=== PATIENT | male | born 1995 | race Caucasian/White ===

== ENCOUNTER 2017-12-08 09:20 | Emergency (ER) | payer MEDICAID ==
--- NOTE | 2017-12-08 09:51 | ED Physician Documentation ---
PD HPI HEENT - Stated complaint Stated Complaint: THROAT PAIN - Chief complaint Chief Complaint: Heent - History obtained from History obtained from: Patient - History of Present Illness Timing - onset: Yesterday Timing - duration: Days (2) Timing - details: Abrupt onset, Still present Location: Throat, Other (left side of neck under mandible.) Worsens: Swalllowing Associated symptoms: Facial swelling. No: Fever, Congestion, Rhinorrhea, Headache Similar symptoms before: Has not had sx before Recently seen: Not recently seen Review of Systems Constitutional: denies: Fever, Chills, Myalgias Nose: denies: Rhinorrhea / runny nose, Congestion Throat: reports: Sore throat. denies: Dental pain / toothache, Oral lesions / sores, Swollen tonsils Cardiac: denies: Chest pain / pressure Respiratory: denies: Dyspnea, Cough GI: denies: Nausea, Vomiting, Diarrhea Skin: denies: Rash, Lesions PD PAST MEDICAL HISTORY - Past Medical History Cardiovascular: None Respiratory: None Neuro: None Endocrine/Autoimmune: None GI: None - Past Surgical History Past Surgical History: No - Present Medications Home Medications: Ambulatory Orders Medication Instructions Recorded Confirmed traZODone [Desyrel] 50 mg PO HS #30 tablet 09/03/16 Cephalexin [Keflex] 500 mg PO QID #24 capsule 12/08/17 Dexamethasone [Decadron] 4 mg PO DAILY #5 tablet 12/08/17 Tramadol HCl 50 mg PO Q6H PRN #20 tablet 12/08/17 - Allergies Allergies/Adverse Reactions: Allergies Allergy/AdvReac Type Severity Reaction Status Date / Time Sulfa (Sulfonamide Allergy Unknown Verified 08/08/16 18:37 Antibiotics) - Social History Does the pt smoke?: No Smoking Status: Never smoker Does the pt drink ETOH?: No Does the pt have substance abuse?: No - Immunizations Immunizations are current?: Yes PD ED PE NORMAL - Vitals Vital signs reviewed: Yes - General General: Alert and oriented X 3, No acute distress, Well developed/nourished - HEENT HEENT: Ears normal, Pharynx benign (mild enlargement of the tonsils but no noted peritonsillar swelling nor deviation. ), Dentition benign (no gum swelling nor tenderness. ) - Neck Neck: Supple, no meningeal sign, Other (left submandibular area with large swelling, firmness. Bedside U/S showing large node with soft tissue swelling. No abscess seen. ) - Cardiac Cardiac: RRR, No murmur - Respiratory Respiratory: Clear bilaterally - Abdomen Abdomen: Soft, Non tender - Back Back: No CVA TTP - Derm Derm: Normal color, Warm and dry, No rash Results - Vitals Vitals: Oxygen O2 Source Room air - Labs Labs: Laboratory Tests 12/08/17 10:13 Group A Strep Rapid Negative PD MEDICAL DECISION MAKING - ED course Complexity details: reviewed results (bedside U/S showing large lymph node and soft tissue swelling without abscess seen. ), considered differential, d/w patient Departure - Departure Disposition: Home, Self Care Clinical Impression: Cervical adenitis, Throat infection Condition: Stable Record reviewed to determine appropriate education?: Yes Instructions: ED Cervical Adenitis Abx Tx Prescriptions: Cephalexin [Keflex] 500 mg PO QID #24 capsule Dexamethasone [Decadron] 4 mg PO DAILY #5 tablet Tramadol HCl 50 mg PO Q6H PRN #20 tablet PRN Reason: Pain Comments: This appears to be a large swollen gland and a lot of swelling of the tissue around it. Given your sore throat, presume the infection started from there and is causing the reaction of the lymph node and tissue. This commonly will be strep. We will see what the culture shows. It does not seem to be a dental infection. Sometimes a viral illness itself will cause this but it usually more symmetric and not just on the one side like that. Cephalexin antibiotic as directed and Decadron steroid anti-inflammatory as directed. Use Tylenol or ibuprofen if needed for pains. Add tramadol if needed for worse pain. Drink lots of fluids. Recheck if not improved over the next couple of days. Return sooner if worse swelling such that it feels like it affects your breathing or swallowing. I do not see any drainable abscess or pocket of infection at this point. Discharge Date/Time: 12/08/17 10:38
[2017-12-08] MEDS ORDERED: DEXAMETHASONE 10 MG/ML VIAL PO STA (10:15)
[2017-12-08] MEDS ORDERED: cephALEXin 250 MG CAPSULE PO STA (10:15)
[2017-12-08] MEDS ORDERED: IBUPROFEN 600 MG TABLET PO STA (10:15)
[2017-12-08 10:26] VITALS: BP 124/65
[2017-12-08] MEDS ORDERED: CHERRY SYRUP 10 ML UDC PO ONE (10:31)
== END 2017-12-08 10:38 | disposition home or self-care (01) ==
LOC: ED 09:20
DX: J02.9 Acute pharyngitis, unspecified (principal); I88.9 Nonspecific lymphadenitis, unspecified
CPT/HCPCS: 87070; 87430; 99283; A9270

== ENCOUNTER 2017-12-11 18:43 | Observation (INO) | payer MEDICAID ==
--- NOTE | 2017-12-11 19:34 | ED Physician Documentation ---
PD HPI HEENT - Stated complaint Stated Complaint: SOA/TERRAZAS - Chief complaint Chief Complaint: Heent - History obtained from History obtained from: Patient - History of Present Illness Timing - onset: How many days ago (has had this about 5-6 days, seen in ED 3 days ago with Dx of likely bacterial adenitis. Rx with keflex. He says the swelling on left went down and was improving but then swelling more centrally and to the right now. Feels some effect on breathing. No trouble swallowing and no distortion of voice.) Timing - duration: Days Timing - details: Gradual onset, Still present Worsens: No: Swalllowing Associated symptoms: Fever Recently seen: Emergency Dept (3 days ago) Review of Systems Constitutional: reports: Fever, Chills, Myalgias Nose: denies: Rhinorrhea / runny nose, Congestion Throat: reports: Sore throat. denies: Dental pain / toothache, Swollen tonsils Cardiac: denies: Chest pain / pressure, Palpitations Respiratory: reports: Dyspnea (feeling fullness in throat) GI: denies: Nausea, Vomiting, Diarrhea Neurologic: denies: Focal weakness, Numbness, Near syncope Immunocompromised: denies: Immunocompromised PD PAST MEDICAL HISTORY - Past Medical History Cardiovascular: None Respiratory: None Neuro: None Endocrine/Autoimmune: None GI: None - Past Surgical History Past Surgical History: No - Present Medications Home Medications: Ambulatory Orders Medication Instructions Recorded Confirmed Omeprazole 10 mg PO QDAC 12/12/17 12/12/17 - Allergies Allergies/Adverse Reactions: Allergies Allergy/AdvReac Type Severity Reaction Status Date / Time Sulfa (Sulfonamide Allergy Unknown Verified 12/11/17 18:59 Antibiotics) - Social History Does the pt smoke?: No Smoking Status: Never smoker Does the pt drink ETOH?: No Does the pt have substance abuse?: No - Immunizations Immunizations are current?: Yes PD ED PE NORMAL - Vitals Vital signs reviewed: Yes - General General: Alert and oriented X 3, No acute distress, Well developed/nourished - HEENT HEENT: Atraumatic, Dentition benign (no swelling of gums. Tonsils showing some redness but no obvious peritonsillar deviation. ) - Neck Neck: Supple, no meningeal sign, Other (swelling submandibular with firmness but not tense. No fluctuance. ) - Cardiac Cardiac: RRR, No murmur - Respiratory Respiratory: Clear bilaterally - Abdomen Abdomen: Soft, Non tender - Derm Derm: Normal color, Warm and dry, Other (redness and swelling of skin under mandible. ) - Neuro Neuro: Alert and oriented X 3, No motor deficit, No sensory deficit, Normal speech (no distortion of the voice) Results - Vitals Vitals: Vital Signs - 24 hr 12/11/17 12/11/17 18:56 20:36 Temperature 36.1 C L Heart Rate 73 66 Respiratory 24 20 Rate Blood Pressure 130/71 127/69 O2 Saturation 97 97 Oxygen O2 Source Room air - Labs Labs: Laboratory Tests 12/11/17 12/11/17 12/11/17 20:09 20:09 20:09 WBC 14.9 H RBC 5.38 Hgb 13.5 L Hct 40.8 L MCV 75.9 L MCH 25.1 L MCHC 33.1 RDW 14.1 Plt Count 428 MPV 7.1 L Neut # Not Reportable Lymph # Not Reportable Stevens # Not Reportable Eos # Not Reportable Baso # Not Reportable Absolute Nucleated RBC Not Reportable Total Counted 100 Band Neuts % (Manual) 2 Abnorm Lymph % (Manual) 0 Metamyelocytes % 1 H Nucleated RBC % Not Reportable Neutrophils # (Manual) 10.3 H Lymphocytes # (Manual) 3.6 H Monocytes # (Manual) 0.9 Eosinophils # (Manual) 0.0 Basophils # (Manual) 0.0 Differential Comment MANUAL DIFFERENTIAL Manual Slide Review Indicated Platelet Estimate NORMAL (130-450,000) Platelet Morphology NORMAL APPEARANCE RBC Morph Micro Appear 1+ ANISOCYTOSIS Sodium 134 L Potassium 3.8 Chloride 101 Carbon Dioxide 25 Anion Gap 8.0 BUN 13 Creatinine 0.5 L Estimated GFR (MDRD) 208 Glucose 100 Calcium 9.0 Total Bilirubin 0.9 AST 63 H ALT 137 H Alkaline Phosphatase 69 Total Protein 8.8 H Albumin 4.1 Globulin 4.7 H Albumin/Globulin Ratio 0.9 L Lipase 12 L Infectious Stevens Assay NEGATIVE - Rads (name of study) neck CT Radiology: Prelim report reviewed, Discussed with rads (soft tissue swelling submandibular and paraepiglottic, but no impingement on airway. no abscess) PD MEDICAL DECISION MAKING - ED course Complexity details: reviewed results (cellulitic changes and soft tissue swelling without abscess. No impairment on breathing passage. Culture from prior visit showing strep group B agalactaia), considered differential, d/w patient, d/w operations consultant (hospitalist) Departure - Departure Disposition: ED Place in Observation Clinical Impression: Cervical adenitis, Cellulitis of submandibular region, Streptococcal infection group B Condition: Stable Record reviewed to determine appropriate education?: Yes Discharge Date/Time: 12/11/17 22:25
[2017-12-11] MEDS ORDERED: DEXAMETHASONE 10 MG/ML VIAL IVP STA (19:50)
[2017-12-11] MEDS ORDERED: KETOROLAC 30 MG/ML VIAL IVP STA (19:50)
[2017-12-11] MEDS ORDERED: SODIUM CHLORIDE 0.9% 1,000 ML IV ONE (19:50)
[2017-12-11] MEDS ORDERED: MORPHINE 2 MG/ML CARPUJECT IVP STA (19:51)
[2017-12-11 20:16] LABS: BASOPHILS % (AUTO) 0.3 %; EOSINOPHILS % (AUTO) 0.1 %; HGB - HEMOGLOBIN 13.5 g/dL (14.0-18.0); LYMPHOCYTES % (AUTO) 17.3 %; MEAN CORPUSCULAR HEMOGLOBIN 25.1 pg (27.0-31.0); MEAN CORPUSCULAR HGB CONC 33.1 g/dL (32.0-36.0); MEAN CORPUSCULAR VOLUME 75.9 fL (80.0-94.0); MEAN PLATELET VOLUME 7.1 fL (7.4-11.4); MONOCYTES % (AUTO) 8.3 %; PLT - PLATELET COUNT 428 10^3/uL (130-450); RED BLOOD COUNT 5.38 10^6/uL (4.70-6.10); RED CELL DISTRIBUTION WIDTH 14.1 % (12.0-15.0); WHITE BLOOD COUNT 14.9 x10^3/uL (4.8-10.8)
[2017-12-11 20:18] LABS: ABNORMAL LYMPHS % (MANUAL) 0 %
[2017-12-11 20:30] LABS: ALBUMIN 4.1 g/dL (3.2-5.5); ALBUMIN/GLOBULIN RATIO 0.9 (1.0-2.2); BILIRUBIN,TOTAL 0.9 mg/dL (0.2-1.0); CREATININE 0.5 mg/dL (0.6-1.2); TOTAL PROTEIN 8.8 g/dL (6.7-8.2)
[2017-12-11 20:31] LABS: BAND NEUTROPHILS % (MANUAL) 2 %; DIFFERENTIAL COMMENT MANUAL DIFFERENTIAL; LYMPHOCYTES # (MANUAL) 3.6 10^3/uL (1.5-3.5); LYMPHOCYTES % (MANUAL) 24 %; METAMYELOCYTES % (MANUAL) 1 %; MONOCYTES # (MANUAL) 0.9 10^3/uL (0.0-1.0); NEUTROPHILS # (MANUAL) 10.3 10^3/uL (1.5-6.6); NEUTROPHILS % (MANUAL) 67 %; PLATELET ESTIMATE, MANUAL NORMAL (130-450,000) (NORMAL); PLATELET MORPHOLOGY NORMAL APPEARANCE (NORMAL); RBC MORPHOLOGY (MULTIPLE) 1+ ANISOCYTOSIS (NORMAL)
[2017-12-11] MEDS ORDERED: IOPAMIDOL-300 100 ML VIAL ONE (20:54)
[2017-12-11] MEDS ORDERED: IOPAMIDOL-300 100 ML VIAL IVP ONE (21:13)
[2017-12-11] MEDS ORDERED: cefTRIAXone 2 GM in SODIUM CHLORIDE 0.9% MINIBAG 100 ML IV STA (21:34)
--- NOTE | 2017-12-11 21:36 | CT Preliminary Report ---
Exam: CT NECK SOFT TISSUE W/ Impression: 1. Asymmetric, unilateral soft tissue swelling involving the right side of the epiglottis in the righ t aryepiglottic fold. These findings are concerning for right-sided supraglottitis. No discrete supra glottic abscess is demonstrated. No significant airway compromise is seen. 2. Also demonstrated is asymmetric enlargement and increased density of the right submandibular gland , suggesting probable hyperenhancement. This is concerning for active infection/inflammation in the s ubmandibular gland. No radiopaque calculus is seen within the gland and there is no evidence of an ob structing calculus in the duct for the right subinsular gland. 3. There is thickening of the platysma muscle bilaterally, more prominence on the right than the left . Stranding is seen in the subcutaneous fat of the anterior neck, also slightly more prominent on the right. These changes suggest cellulitis. No discrete abscess is demonstrated. SITE ID: [id number]
[2017-12-11] MEDS ORDERED: SODIUM CHLORIDE FLUSH 0.9% 10 ML SYRINGE IVP PRN (21:59)
[2017-12-11] MEDS ORDERED: ZOLPIDEM 5 MG TABLET PO PRN (21:59)
[2017-12-11] MEDS ORDERED: IBUPROFEN 600 MG TABLET PO PRN (21:59)
[2017-12-11] MEDS ORDERED: PROCHLORPERAZINE 10 MG/2 ML VIAL IVP PRN (21:59)
[2017-12-11] MEDS ORDERED: MORPHINE 2 MG/ML CARPUJECT IVP PRN (21:59)
[2017-12-11] MEDS ORDERED: traMADol 50 MG TABLET PO PRN (22:02)
--- NOTE | 2017-12-11 22:06 | CT Report ---
CT SOFT TISSUE NECK WITH CONTRAST INDICATION: 22-year-old male with submandibular swelling. TECHNIQUE: 100 mL of Isovue-300 contrast were injected intravenously. The neck was scanned helically and data wa s reconstructed into 2 mm axial images. In addition, sagittal and coronal reformations have been gene rated. In accordance with CT protocol optimization, one or more of the following dose reduction techniques w ere utilized for this exam: automated exposure control, adjustment of mA and/or KV based on patient s ize, or use of iterative reconstructive technique. COMPARISON: None. FINDINGS: The right submandibular gland appears slightly larger than the left. In addition, it is slightly more hyperdense, suggesting a probable increased enhancement. This suggests probable active inflammation within the gland. No radiopaque calculi are seen within the gland. In addition, no obvious radiopaque calculi are seen in the distribution of the duct for either submandibular gland. There is minor asym metric thickening of the platysma on the right. Stranding is identified in the subcutaneous fat of th e anterior neck, slightly more prominent on the right than the left. These finding suggests celluliti s. No discrete, loculated, peripherally enhancing fluid collection is identified within the neck. The nasopharyngeal and oropharyngeal soft tissues appear symmetric. No enhancing tongue mass is demon strated. There is mild asymmetric fullness of the right lingual tonsil. Also demonstrated is asymmetr ic thickening of the right side of the epiglottis and the right aryepiglottic fold, suggesting the po ssibility of right-sided supraglottitis. No discrete supraglottic abscess is demonstrated. The larynx is otherwise unremarkable. The trachea appears widely patent to the tegan. The thyroid has a normal appearance. The parotid glands are unremarkable. The main arteries and veins of the neck appear patent. Normal sized, well-circumscribed, nonnecrotic lymph nodes are identified within the neck. No necrotic or suppurative lymph nodes are demonstrated. No focal mass/nodule is identified in the imaged upper lungs. Regional bony structures appear intact. The mastoid air cells and middle ear cavities are clear. Ther e is polypoid mucosal thickening in the inferior maxillary sinuses. The imaged paranasal sinuses are otherwise clear. No mass is identified in the imaged orbits. No obvious acute pathology is seen in the imaged brain. IMPRESSION: 1. Asymmetric, unilateral soft tissue swelling involving the right side of the epiglottis in the righ t aryepiglottic fold. These findings are concerning for right-sided supraglottitis. No discrete supra glottic abscess is demonstrated. No significant airway compromise is seen. 2. Also demonstrated is asymmetric enlargement and increased density of the right submandibular gland , suggesting probable hyperenhancement. This is concerning for active infection/inflammation in the s ubmandibular gland. No radiopaque calculus is seen within the gland and there is no evidence of an ob structing calculus in the duct for the right subinsular gland. 3. There is thickening of the platysma muscle bilaterally, more prominence on the right than the left . Stranding is seen in the subcutaneous fat of the anterior neck, also slightly more prominent on the right. These changes suggest cellulitis. No discrete abscess is demonstrated. a preliminary report for this examination was called to Dr. Mohamud, following interpretation on at approximately 2134 hrs. Referring Provider Line: [phone] SITE ID: [id number]
[2017-12-11] MEDS ORDERED: methylPREDNISolone SUCCINATE 40 MG/ML VIAL IVP SCH (23:00)
[2017-12-11] MEDS ORDERED: traZODone 50 MG TABLET PO SCH (23:00)
[2017-12-11] MEDS: SODIUM CHLORIDE FLUSH 0.9% 10 ML SYRINGE IVP SCH (23:52)
--- NOTE | 2017-12-12 03:09 | HISTORY & PHYSICAL EXAMINATION ---
DATE OF SERVICE: Physician: Val Manzano MD DATE OF ADMISSION: 12/11/2017 HISTORY OF PRESENT ILLNESS: This is a 22-year-old, white male with a history of obesity and otherwise negative past medical history. Three days ago, he presented to the emergency room after abrupt onset of swelling of the left side of his neck under the mandible and had evaluation, and was felt to have cervical adenitis with an ultrasound showing a large lymph node and soft tissue swelling, but no abscess. He was sent home from the emergency room on Keflex 500 mg p.o. q.i.d. for a 6-day course, Decadron 4 mg p.o. daily, tramadol p.r.n. pain, and told to drink fluids. Apparently, the swelling improved but then today it got worse, and has actually moved to an area on the right, just lateral to the mandible. He came back to the emergency room, had imaging which again showed no area of abscess, mild cellulitis. The patient had no fever since before the very first ER visit. He denied any respiratory compromise or change in voice. The patient is being admitted because of failing p.o. antibiotics. MEDICATIONS AT HOME 1. Trazodone 50 mg p.o. at bedtime. 2. Keflex 500 mg p.o. q.i.d. 3. Decadron 4 mg p.o. daily. 4. Tramadol 50 mg p.o. q.6 hours p.r.n. pain. PAST MEDICAL HISTORY: None. ALLERGIES: SULFA ANTIBIOTICS. SOCIAL HISTORY: He is a nonsmoker who never smoked, uses no alcohol, has no illicit drug use history. FAMILY HISTORY: No inherited diseases. REVIEW OF SYSTEMS: A comprehensive review of systems was performed and the pertinent information is described above, all else are negative. PHYSICAL EXAMINATION GENERAL: Obese, young, white male in no distress. VITAL SIGNS: Afebrile, heart rate 73 in sinus rhythm, respiratory rate 20, blood pressure 127/70, oxygen saturation 97% on room air. HEENT: Reveals a foul odor from his mouth. Good dentition. Swelling and tenderness of the right mid lower mandible with no redness or discharge. NECK: There is no thyromegaly. No carotid bruits or JVD. CHEST: Clear. HEART: Heart sounds normal. No murmur. ABDOMEN: Obese. EXTREMITIES: No clubbing, cyanosis or edema. SKIN: No rash. NEUROLOGIC: Grossly intact. There are no meningeal signs. LABORATORIES: Sodium 134, otherwise normal electrolytes and BUN and creatinine. AST is 63, ALT 137. There are no old LFTs to compare. White blood count 14.9 with a left shift, hemoglobin 13.5 with a low MCV of 75, platelet count normal. Catron assay negative. Group A strep assay negative. No INR was done. EKG done and showed normal sinus rhythm and within normal limits. CT soft tissue of his neck: Thyroid was normal in appearance. Parotid glands unremarkable. Arteries of the neck generally patent. Asymmetric unilateral soft tissue swelling involving the right side of the epiglottis in the right aryepiglottic fold, concerning for right-sided supraglottitis, but no abscess seen and no airway compromise. There was also asymmetric enlargement of the right submandibular gland, suggesting probable hyperenhancement, consistent with active infection in the submandibular gland. No evidence of an obstructing calculus in the duct. There is thickening of the platysma muscle bilaterally, more on the right than the left. There is stranding in the subcutaneous fat of the anterior neck, more on the right than the left, which suggests cellulitis. IMPRESSION: 1) Supraglottitis with neck cellulitis and inflammation of the submandibular gland. The microbiology report from his emergency room visit 3 days ago is positive and is growing Streptococcus agalactiae, which is sensitive to everything. 2) Elevated LFTs 3) Obesity PLAN: Place the patient in observation. Initiate IV antibiotics to cover oral and skin ayesha, using Ceftriaxone. Initiate IV steroids. Observe for airway compromise. Continue with pain medications. Order a soft diet during this time period of facial pain and swelling. Consider a surgical consult or a dental consult. Follow CBC and LFTs. CODE STATUS: FULL CODE. DEEP VENOUS THROMBOSIS PROPHYLAXIS: SCDs. ATTESTATION: The patient is expected to be discharged or transferred within 96 hours: Yes. TD: 12/12/2017 03:08 ARSLAN
[2017-12-12 05:34] LABS: BASOPHILS % (AUTO) 0.1 %; LYMPHOCYTES % (AUTO) 16.3 %; MEAN CORPUSCULAR HEMOGLOBIN 24.8 pg (27.0-31.0); MEAN CORPUSCULAR HGB CONC 32.4 g/dL (32.0-36.0); MEAN CORPUSCULAR VOLUME 76.7 fL (80.0-94.0); MEAN PLATELET VOLUME 7.2 fL (7.4-11.4); MONOCYTES % (AUTO) 4.7 %; NEUTROPHILS % (AUTO) 78.9 %; PLT - PLATELET COUNT 418 10^3/uL (130-450); RED BLOOD COUNT 5.23 10^6/uL (4.70-6.10); RED CELL DISTRIBUTION WIDTH 14.3 % (12.0-15.0); WHITE BLOOD COUNT 13.2 x10^3/uL (4.8-10.8)
[2017-12-12 05:35] LABS: ABNORMAL LYMPHS % (MANUAL) 0 %
[2017-12-12 05:41] LABS: ALBUMIN 3.6 g/dL (3.2-5.5); BILIRUBIN,DIRECT 0.2 mg/dL (0.1-0.5); BILIRUBIN,TOTAL 0.7 mg/dL (0.2-1.0); TOTAL PROTEIN 7.9 g/dL (6.7-8.2)
[2017-12-12] MEDS: SODIUM CHLORIDE FLUSH 0.9% 10 ML SYRINGE IVP SCH ×2 (06:17→13:55)
[2017-12-12 06:18] LABS: BAND NEUTROPHILS % (MANUAL) 6 %; DIFFERENTIAL COMMENT MANUAL DIFFERENTIAL; LYMPHOCYTES # (MANUAL) 1.8 10^3/uL (1.5-3.5); LYMPHOCYTES % (MANUAL) 14 %; METAMYELOCYTES % (MANUAL) 1 %; MONOCYTES # (MANUAL) 0.5 10^3/uL (0.0-1.0); MYELOCYTES % (MANUAL) 1 %; NEUTROPHILS # (MANUAL) 10.6 10^3/uL (1.5-6.6); NEUTROPHILS % (MANUAL) 74 %; PLATELET ESTIMATE, MANUAL NORMAL (130-450,000) (NORMAL); RBC MORPHOLOGY (MULTIPLE) NORMAL APPEARANCE (NORMAL)
[2017-12-12] MEDS ORDERED: POLYETHYLENE GLYCOL 3350 17 GM PACKET PO SCH (09:00)
[2017-12-12] MEDS ORDERED: methylPREDNISolone SUCCINATE 40 MG/ML VIAL IVP SCH (09:00)
--- NOTE | 2017-12-12 10:10 | Discharge Plan ---
Discharge Plan Disposition: Home, Self Care Condition: Good Prescriptions: levoFLOXacin [Levofloxacin] 500 mg PO DAILY 10 Days #10 tablet predniSONE [Prednisone] 10 mg PO DAILY 4 Days #8 tab.ds.pk Saccharomyces Boulardii [Florastor] 250 mg PO BID 20 Days #40 capsule Diet: Regular Activity Restrictions: No Restrictions Shower Restrictions: No Driving Restrictions: No Weight Bearing: Full Weight Additional Instructions or Follow Up instructions: You were admitted overnight for IV antibiotic treatment of supraglottitis with neck cellulitis and inflammation of the submandibular gland. You will be prescribed ongoing antibiotics for at least another 10 days. You should see your PCP in the next few days as a follow up to this hospital stay. Your liver enzymes were elevated, so follow up with your PCP as to further testing; such as a Hepatitis panel, lipid panel, autoimmune markers, toxicology screening, etc. If you get more fevers, have problems swallowing or breathing return to the ER, or see your PCP. No Smoking: If you smoke, Please STOP! Call for help.
--- NOTE | 2017-12-12 10:37 | DISCHARGE SUMMARY ---
Discharge Summary Admit Date: 12/11/17 Discharge Date: 12/12/17 Discharging Provider: THIEN Prieto Primary Care Provider: none Code Status: Attempt Resuscitation Condition at Discharge: Good Discharge Disposition: 01 Home, Self Care - DIAGNOSES Admission Diagnoses: Supraglottitis without airway obstruction (J04.30) Cellulitis (L03.90) Elevated LFTs (R79.89) Obesity (E66.9) Discharge Diagnoses with Status of Each Condition: Supraglottitis without airway obstruction (J04.30) acute on this admission, stable and patient prescribed PO antibiotics outpatient. Cellulitis (L03.90) ongoing, being treated with PO antbiotics Elevated LFTs (R79.89) chronic, recommend follow up. Obesity (E66.9) chronic, stable. - HPI History of Present Illness: Sir Trey Pickard is a morbidly obese 22-year old male with a past medical history of obesity and otherwise a negative past medical history. Three days ago, he presented to the emergency room after abrupt onset of swelling of the left side of his neck under the mandible and had evaluation. This was felt to have cervical adenitis with an ultrasound showing a large lymph node and soft tissue swelling, but no abscess. He was sent home from the emergency room on Keflex 500mg PO QID for a 6-day course. Decadron 4mg PO daily, tramadol PRN for pain. He was also encouraged to drink fluids. Apparently, the swelling improved but then today it became worse and has migrated to an area on the right , just lateral to the mandible. He then presented to our ED. Imaging shows Asymmetric unilateral soft tissue swelling involving the right side of the epiglottis in the right aryepiglottic fold, concerning for right-sided supraglottis, but no abscess seen and no airway compromise. There was also asymmetric enlargement of the right submandibular gland, suggesting probable hyperenhancement, consistent with active infection in the submandibular gland. Patient was given his first dose of IV antibiotics in the ED, and will be admitted for observation with further IV steroids, IV antibiotics and symptom management. - HOSPITAL COURSE Hospital Course: Patient had an uneventful stay and recieved a second dose of IV Rochephin for treatment of his right face/neck cellulitis. We was then prescribed an additional 10 day course of once daily Levofloxicin PO to the pharmacy of his choice. He was transported via his mother home in stable condition with instructions to follow up with and establish a PCP in the next few days. - ALLERGIES Allergies/Adverse Reactions: Allergies Allergy/AdvReac Type Severity Reaction Status Date / Time Sulfa (Sulfonamide Allergy Unknown Verified 12/11/17 18:59 Antibiotics) - MEDICATIONS Home Medications: Ambulatory Orders Medication Instructions Recorded Confirmed Omeprazole 10 mg PO QDAC 12/12/17 12/12/17 Saccharomyces Boulardii [Florastor] 250 mg PO BID 20 Days #40 capsule 12/12/17 levoFLOXacin [Levofloxacin] 500 mg PO DAILY 10 Days #10 tablet 12/12/17 predniSONE [Prednisone] 10 mg PO DAILY 4 Days #8 tab.ds.pk 12/12/17 - PHYSICAL EXAM AT DISCHARGE General Appearance: positive: No acute distress, Alert Eyes Bilateral: positive: Normal inspection ENT: positive: No signs of dehydration, Pharyngeal erythema, Dry mucous membranes Neck: positive: No JVD, Trachea midline, Lymphadenopathy (R), Swelling/bruising (mild redness, very tender with palpation. Mild sore throat.) Respiratory: positive: Chest non-tender, No respiratory distress, Breath sounds nml Cardiovascular: positive: Regular rate & rhythm, No murmur, No gallop Peripheral Pulses: positive: 1+ Abdomen: positive: Non-tender, Nml bowel sounds, Hepatomegaly Back: positive: Nml inspection Skin: positive: No rash, Warm, Dry, Pallor Extremities: positive: Non-tender, Full ROM, Nml appearance, No pedal edema Neurologic/Psychiatric: positive: Oriented x3, CN's nml (2-12), Motor nml, Sensation nml, Depressed mood/affect Reflexes: Bicep (R): 3+, Bicep (L): 3+ - LABS Result Diagrams: 12/12/17 05:19 12/11/17 20:09 - DIAGNOSTIC IMAGING Diagnostic Imaging Results: Final report reviewed Diagnostic Imaging Results Comments: CT SOFT TISSUE NECK WITH CONTRAST INDICATION: 22-year-old male with submandibular swelling. TECHNIQUE: 100 mL of Isovue-300 contrast were injected intravenously. The neck was scanned helically and data was reconstructed into 2 mm axial images. In addition, sagittal and coronal reformations have been generated. In accordance with CT protocol optimization, one or more of the following dose reduction techniques were utilized for this exam: automated exposure control, adjustment of mA and/or KV based on patient size, or use of iterative reconstructive technique. COMPARISON: None. FINDINGS: The right submandibular gland appears slightly larger than the left. In addition, it is slightly more hyperdense, suggesting a probable increased enhancement. This suggests probable active inflammation within the gland. No radiopaque calculi are seen within the gland. In addition, no obvious radiopaque calculi are seen in the distribution of the duct for either submandibular gland. There is minor asymmetric thickening of the platysma on the right. Stranding is identified in the subcutaneous fat of the anterior neck , slightly more prominent on the right than the left. These finding suggests cellulitis. No discrete, loculated, peripherally enhancing fluid collection is identified within the neck. The nasopharyngeal and oropharyngeal soft tissues appear symmetric. No enhancing tongue mass is demonstrated. There is mild asymmetric fullness of the right lingual tonsil. Also demonstrated is asymmetric thickening of the right side of the epiglottis and the right aryepiglottic fold, suggesting the possibility of right-sided supraglottitis. No discrete supraglottic abscess is demonstrated. The larynx is otherwise unremarkable. The trachea appears widely patent to the tegan. The thyroid has a normal appearance. The parotid glands are unremarkable. The main arteries and veins of the neck appear patent. Normal sized, well-circumscribed, nonnecrotic lymph nodes are identified within the neck. No necrotic or suppurative lymph nodes are demonstrated. No focal mass/nodule is identified in the imaged upper lungs. Regional bony structures appear intact. The mastoid air cells and middle ear cavities are clear. There is polypoid mucosal thickening in the inferior maxillary sinuses. The imaged paranasal sinuses are otherwise clear. No mass is identified in the imaged orbits. No obvious acute pathology is seen in the imaged brain. IMPRESSION: 1. Asymmetric, unilateral soft tissue swelling involving the right side of the epiglottis in the right aryepiglottic fold. These findings are concerning for right-sided supraglottitis. No discrete supraglottic abscess is demonstrated. No significant airway compromise is seen. 2. Also demonstrated is asymmetric enlargement and increased density of the right submandibular gland, suggesting probable hyperenhancement. This is concerning for active infection/inflammation in the submandibular gland. No radiopaque calculus is seen within the gland and there is no evidence of an obstructing calculus in the duct for the right subinsular gland. 3. There is thickening of the platysma muscle bilaterally, more prominence on the right than the left. Stranding is seen in the subcutaneous fat of the anterior neck, also slightly more prominent on the right. These changes suggest cellulitis. No discrete abscess is demonstrated. - FOLLOW UP Follow Up: Disposition: Home, Self Care Condition: Good Prescriptions: levoFLOXacin [Levofloxacin] 500 mg PO DAILY 10 Days #10 tablet predniSONE [Prednisone] 10 mg PO DAILY 4 Days #8 tab.ds.pk Saccharomyces Boulardii [Florastor] 250 mg PO BID 20 Days #40 capsule Diet: Regular Activity Restrictions: No Restrictions Shower Restrictions: No Driving Restrictions: No Weight Bearing: Full Weight Additional Instructions or Follow Up instructions: You were admitted overnight for IV antibiotic treatment of supraglottitis with neck cellulitis and inflammation of the submandibular gland. You will be prescribed ongoing antibiotics for at least another 10 days. You should see your PCP in the next few days as a follow up to this hospital stay. Your liver enzymes were elevated, so follow up with your PCP as to further testing; such as a Hepatitis panel, lipid panel, autoimmune markers, toxicology screening, etc. If you get more fevers, have problems swallowing or breathing return to the ER, or see your PCP. - TIME SPENT Time Spent in Discharge (Minutes): 45
[2017-12-12 10:59] LABS: HEMOGLOBIN A1C 0.53 g/dL; HEMOGLOBIN A1C % 5.4 % (4.6-6.2)
[2017-12-12] MEDS ORDERED: cefTRIAXone 1 GM in SODIUM CHLORIDE 0.9% MINIBAG 100 ML IV SCH ×2 (14:00→22:00)
[2017-12-12 15:16] VITALS: BP 146/78
== END 2017-12-12 15:17 | disposition home or self-care (01) ==
LOC: ED 18:43 → OBS 21:59
PROVIDERS: ADMIT Internal Medicine; ATTEND Internal Medicine
DX: J04.30 Supraglottitis, unspecified, without obstruction (principal); B95.1 Streptococcus, group B, as the cause of diseases classified elsewhere; L03.211 Cellulitis of face; L03.221 Cellulitis of neck; R79.89 Other specified abnormal findings of blood chemistry; E66.9 Obesity, unspecified; Z68.41 Body mass index [BMI] 40.0-44.9, adult; Z79.899 Other long term (current) drug therapy
CPT/HCPCS: 36415; 70491; 80053; 80076; 83036; 83690; 85025; 86308; 87640; 93005; 96361; 96365; 96366; 96375; 99283; 99284; A9270; G0378; Q9967

== ENCOUNTER 2018-02-20 10:06 | Outpatient (CLI) | payer MEDICAID | END 2018-02-20 10:07 | disposition critical access hospital (66) | LOC: EMS 10:06 | PROVIDERS: ATTEND Surgery | DX: R10.12 Left upper quadrant pain (principal) | CPT/HCPCS: A0425; A0429 ==

== ENCOUNTER 2018-02-20 10:26 | Emergency (ER) | payer MEDICAID ==
[2018-02-20 12:05] LABS: BASOPHILS # (AUTO) 0.1 10^3/uL (0.0-0.1); BASOPHILS % (AUTO) 0.3 %; EOSINOPHILS # (AUTO) 0.1 10^3/uL (0.0-0.7); EOSINOPHILS % (AUTO) 0.5 %; HGB - HEMOGLOBIN 13.7 g/dL (14.0-18.0); LYMPHOCYTES # (AUTO) 2.5 10^3/uL (1.5-3.5); LYMPHOCYTES % (AUTO) 15.5 %; MEAN CORPUSCULAR HEMOGLOBIN 25.8 pg (27.0-31.0); MEAN CORPUSCULAR HGB CONC 33.5 g/dL (32.0-36.0); MEAN CORPUSCULAR VOLUME 77.1 fL (80.0-94.0); MEAN PLATELET VOLUME 7.2 fL (7.4-11.4); NEUTROPHILS # (AUTO) 12.5 10^3/uL (1.5-6.6); NEUTROPHILS % (AUTO) 77.7 %; PLT - PLATELET COUNT 332 10^3/uL (130-450); RED BLOOD COUNT 5.32 10^6/uL (4.70-6.10); RED CELL DISTRIBUTION WIDTH 14.6 % (12.0-15.0); WHITE BLOOD COUNT 16.1 x10^3/uL (4.8-10.8)
--- NOTE | 2018-02-20 12:12 | ED Physician Documentation ---
PD HPI ABD PAIN - Stated complaint Stated Complaint: ABD PX - Chief complaint Chief Complaint: Abd Pain - History obtained from History obtained from: Patient - History of Present Illness Timing - onset: Last night (about 2 am) Timing - duration: Hours (8) Timing - details: Abrupt onset, Still present, Waxing and waning Quality: Cramping, Aching, Pain Location: LLQ Radiation: Left flank Improved by: No: Position Worsened by: Moving, Palpation. No: Breathing, Position Associated symptoms: Nausea, Constipation (firm small stools only for few days) . No: Fever, Vomiting, Diarrhea, Melena, Hematochezia Recently seen: Not recently seen Review of Systems Constitutional: denies: Fever, Chills, Myalgias Nose: denies: Rhinorrhea / runny nose, Congestion Throat: denies: Sore throat Respiratory: denies: Cough GI: reports: Abdominal Pain, Nausea, Constipation. denies: Vomiting, Diarrhea, Hematemesis, Bloody / black stool : denies: Dysuria, Frequency Skin: denies: Rash, Lesions PD PAST MEDICAL HISTORY - Past Medical History Cardiovascular: None Respiratory: None Neuro: None Endocrine/Autoimmune: None GI: None : None Psych: Depression, Bipolar disorder Musculoskeletal: None Derm: None - Past Surgical History Past Surgical History: No - Present Medications Home Medications: Ambulatory Orders Medication Instructions Recorded Confirmed Omeprazole 10 mg PO QDAC 12/12/17 12/12/17 Acetaminophen [Tylenol] 650 mg PO Q6H PRN #30 tab 02/20/18 Docusate Sodium 100 mg PO DAILY #30 capsule 02/20/18 Naproxen [Naprosyn] 500 mg PO BID PRN #30 tablet 02/20/18 - Allergies Allergies/Adverse Reactions: Allergies Allergy/AdvReac Type Severity Reaction Status Date / Time Sulfa (Sulfonamide Allergy Unknown Verified 02/20/18 10:37 Antibiotics) - Social History Does the pt smoke?: No Smoking Status: Never smoker Does the pt drink ETOH?: No Does the pt have substance abuse?: No - Immunizations Immunizations are current?: Yes PD ED PE NORMAL - Vitals Vital signs reviewed: Yes - General General: Alert and oriented X 3, Well developed/nourished, Other (seems uncomfortable due to left abd pain. ) - HEENT HEENT: Pharynx benign - Neck Neck: Supple, no meningeal sign, No adenopathy - Cardiac Cardiac: RRR, No murmur - Respiratory Respiratory: Clear bilaterally - Abdomen Abdomen: Normal bowel sounds, Soft, Non distended, No organomegaly, Other (left mid to lower abd tenderness without guarding nor rebound tenderness. ) - Male Male : Deferred - Rectal Rectal: Deferred - Back Back: No CVA TTP - Derm Derm: Normal color, Warm and dry - Extremities Extremities: No tenderness to palpate, Normal ROM s pain - Neuro Neuro: Alert and oriented X 3, No motor deficit, Normal speech Results - Vitals Vitals: Oxygen O2 Source Room air - Labs Labs: Laboratory Tests 02/20/18 02/20/18 02/20/18 11:59 11:59 12:10 WBC 16.1 H RBC 5.32 Hgb 13.7 L Hct 41.0 L MCV 77.1 L MCH 25.8 L MCHC 33.5 RDW 14.6 Plt Count 332 MPV 7.2 L Neut # 12.5 H Lymph # 2.5 [place] # 1.0 Eos # 0.1 Baso # 0.1 Absolute Nucleated RBC 0.00 Nucleated RBC % 0.0 Sodium 134 L Potassium 3.8 Chloride 102 Carbon Dioxide 25 Anion Gap 7.0 BUN 9 Creatinine 0.6 Estimated GFR (MDRD) 168 Glucose 97 Calcium 9.2 Total Bilirubin 0.8 AST 59 H ALT 122 H Alkaline Phosphatase 72 Total Protein 8.1 Albumin 4.5 Globulin 3.6 Albumin/Globulin Ratio 1.3 Lipase 24 Urine Color YELLOW Urine Clarity CLEAR Urine pH 7.0 Ur Specific [place] 1.020 Urine Protein TRACE Urine Glucose (UA) NEGATIVE Urine Ketones NEGATIVE Urine Occult Blood NEGATIVE Urine Nitrite NEGATIVE Urine Bilirubin NEGATIVE Urine Urobilinogen 0.2 (NORMAL) Ur Leukocyte Esterase NEGATIVE Ur Microscopic Review NOT INDICATED Urine Culture Comments NOT INDICATED - Rads (name of study) abd/pelvic CT Radiology: Prelim report reviewed (no acute process to explain the pain), EMP read contemporaneously PD MEDICAL DECISION MAKING - ED course Complexity details: reviewed results, re-evaluated patient (feeling better with meds. ), considered differential, d/w patient Departure - Departure Disposition: 01 Home, Self Care Clinical Impression: Left sided abdominal pain Constipation Qualifiers: Constipation type: unspecified constipation type Qualified Code(s): K59.00 - Constipation, unspecified Condition: Stable Record reviewed to determine appropriate education?: Yes Instructions: ED Abdominal Pain Unkn Cause, ED Constipation Prescriptions: Acetaminophen [Tylenol] 650 mg PO Q6H PRN #30 tab PRN Reason: Pain Docusate Sodium 100 mg PO DAILY #30 capsule Naproxen [Naprosyn] 500 mg PO BID PRN #30 tablet PRN Reason: Pain Comments: Drink lots of fluids. Use docusate stool softener daily for the next week or so to stay regular. Naproxen twice daily for the next several days to week for pains and cramps and inflammation of the intestine. Add Tylenol every 4-6 hours if needed for pain. Recheck if not improving over the next few days. Your CT scan did not show any obvious cause for the pain. There can be irritation and inflammation of the colon related to constipation or possibly from inflammatory conditions such as colitis. Follow-up with your primary care if not improved over the next several days. Discharge Date/Time: 02/20/18 15:15
[2018-02-20 12:19] LABS: ALBUMIN 4.5 g/dL (3.2-5.5); ALBUMIN/GLOBULIN RATIO 1.3 (1.0-2.2); BILIRUBIN,TOTAL 0.8 mg/dL (0.2-1.0); CALCIUM 9.2 mg/dL (8.5-10.3); CREATININE 0.6 mg/dL (0.6-1.2); TOTAL PROTEIN 8.1 g/dL (6.7-8.2)
[2018-02-20 12:24] LABS: GLUCOSE, URINE (UA) NEGATIVE (NEGATIVE); KETONES,URINE (UA) NEGATIVE (NEGATIVE); LEUKOCYTE ESTERASE, URINE NEGATIVE (NEGATIVE); NITRITE,URINE NEGATIVE (NEGATIVE); OCCULT BLOOD,URINE NEGATIVE (NEGATIVE); PROTEIN,URINE TRACE mg/dL (NEGATIVE); UROBILINOGEN,URINE 0.2 (NORMAL) E.U./dL (NORMAL)
[2018-02-20 12:27] LABS: CLARITY,URINE CLEAR (CLEAR)
[2018-02-20 12:30] LABS: BILIRUBIN,URINE NEGATIVE (NEGATIVE); ICTOTEST,URINE NEGATIVE
[2018-02-20] MEDS ORDERED: KETOROLAC 60 MG/2 ML VIAL IM STA (12:45)
[2018-02-20] MEDS ORDERED: ACETAMINOPHEN 325 MG TABLET PO STA (12:46)
[2018-02-20 13:42] VITALS: BP 152/69
--- NOTE | 2018-02-20 14:05 | CT Preliminary Report ---
Exam: CT ABDOMEN/PELVIS W/O IMPRESSION: 1. Fatty liver. 2. Abnormal thoracolumbar spine consistent with prior Scheuermann's disease, excessive athletic parti cipation, remote trauma or osteoporosis. 3. No radiographic explanation for this young gentleman's presenting symptoms. [facility] SITE ID: [id number]
--- NOTE | 2018-02-20 14:10 | CT Report ---
EXAM: CT ABDOMEN AND PELVIS EXAM DATE: 02/20/2018 01:35 PM. CLINICAL HISTORY: Left abd/flank pain. Recent constipation. COMPARISONS: Gallbladder ultrasound 08/08/2016. No prior CT exam. TECHNIQUE: Routine helical CT imaging was performed through the abdomen and pelvis. IV contrast: None . Enteric contrast: No. Reconstructions: Coronal and sagittal. In accordance with CT protocol optimization, one or more of the following dose reduction techniques w ere utilized for this exam: automated exposure control, adjustment of mA and/or KV based on patient s ize, or use of iterative reconstructive technique. FINDINGS: Lung Bases: Unremarkable. Liver: Fatty infiltration. Gallbladder/Bile Ducts: Unremarkable. Spleen: Normal. Pancreas: Normal. Adrenal Glands: Normal. Kidneys: Normal. No masses, stones or hydronephrosis. Normal ureters. Peritoneal Cavity/Bowel: Normal. No free fluid, free air or adenopathy. No masses or acute inflammato ry process. The appendix is well visualized and normal. Minimal amount of stool throughout the small caliber colon. Pelvic Organs: Normal. The bladder and visualized pelvic organs are within normal limits. Vasculature: No aneurysms or other significant abnormality. Bones: Old mild wedging T8 to L1 with irregular endplates and mild degenerative disk disease. Other: None. IMPRESSION: 1. Fatty liver. 2. Abnormal thoracolumbar spine consistent with prior Scheuermann's disease, excessive athletic parti cipation, remote trauma or osteoporosis. 3. No radiographic explanation for this young gentleman's presenting symptoms. [facility] Referring Provider Line: [phone] SITE ID: [id number]
[2018-02-20] MEDS ORDERED: DOCUSATE SODIUM 100 MG CAPSULE PO STA (14:51)
== END 2018-02-20 15:15 | disposition home or self-care (01) ==
LOC: EDUNIT# → ED 10:26
DX: K59.00 Constipation, unspecified (principal); R10.32 Left lower quadrant pain
CPT/HCPCS: 36415; 74176; 80053; 81003; 83690; 85025; 96372; 99283; 99284; A9270; 81001; 87086

== ENCOUNTER 2018-07-18 18:19 | Emergency (ER) | payer MEDICAID ==
[2018-07-18 18:35] VITALS: BP 148/84
--- NOTE | 2018-07-18 18:48 | ED Physician Documentation ---
PD HPI BACK PAIN - Stated complaint Stated Complaint: UPPER BACK PX - Chief complaint Chief Complaint: Back Pain - History obtained from History obtained from: Patient - History of Present Illness Timing - onset: Other (He got a new job at [email or web address] where he does a lot of heavy lifting about a month ago. Over the last couple of weeks he has had upper back pain that is worse at night and worse in certain positions and when he sits up straight. He has tried stretching it out without relief. He is also tried acetaminophen [id number] without relief. There is no weakness, numbness, or tingling of the extremities. No neck pain. No saddle anesthesia. No fevers. No shortness of breath.) Review of Systems Constitutional: denies: Fever, Chills Cardiac: denies: Chest pain / pressure, Palpitations Respiratory: denies: Dyspnea, Cough GI: denies: Abdominal Pain PD PAST MEDICAL HISTORY - Past Medical History Cardiovascular: None Respiratory: None Endocrine/Autoimmune: None GI: None : None Psych: Depression, Bipolar disorder Musculoskeletal: None Derm: None - Past Surgical History Past Surgical History: No - Present Medications Home Medications: Ambulatory Orders Medication Instructions Recorded Confirmed Acetaminophen [Tylenol] 650 mg PO Q6H PRN #30 tab 02/20/18 Cyclobenzaprine [Flexeril] 10 mg PO TID PRN #20 tablet 07/18/18 Ibuprofen [Motrin] 800 mg PO Q8H PRN #30 tablet 07/18/18 - Allergies Allergies/Adverse Reactions: Allergies Allergy/AdvReac Type Severity Reaction Status Date / Time Sulfa (Sulfonamide Allergy Unknown Verified 07/18/18 18:35 Antibiotics) - Social History Does the pt smoke?: No Smoking Status: Never smoker Does the pt drink ETOH?: No Does the pt have substance abuse?: No - Immunizations Immunizations are current?: Yes PD ED PE NORMAL - Vitals Vital signs reviewed: Yes - General General: Alert and oriented X 3, No acute distress - Neck Neck: No bony TTP - Cardiac Cardiac: RRR, No murmur - Respiratory Respiratory: No respiratory distress, Clear bilaterally - Back Back: No spinal TTP, Other (Tender to the parathoracic muscles bilaterally, worse with certain positions but comfortable at rest. He has equal bilateral business partner strength, thumb extension, and interossei strength.Tender to the parathoracic muscles bilaterally, worse with certain positions but comfortable at rest. He has equal bilateral business partner strength, thumb extension, and interossei strength.) - Derm Derm: Other (acanthosis nigricans) - Neuro Neuro: Alert and oriented X 3, Normal speech - Psych Psych: Normal mood, Normal affect Results - Vitals Vitals: Vital Signs - 24 hr 07/18/18 18:32 Temperature 37.1 C Heart Rate 92 Respiratory 16 Rate Blood Pressure 148/84 H O2 Saturation 98 Oxygen O2 Source Room air PD MEDICAL DECISION MAKING - ED course ED course: This patient has seemingly uncomplicated musculoskeletal back pain. The patient has no "red flags." Specifically denies IV drug use, fevers, incontinence, saddle anesthesia. Spinal epidural abscess was considered, given that the patient has no fever, is not diabetic, has no spinal tenderness, does not use IV drugs, and has no bilateral neurologic symptoms, the diagnosis of spinal epidural abscess is considered exceedingly unlikely. He does have a acanthosis nigricans and as such a fingerstick blood sugar was checked and is 83. - Sepsis Event Vital Signs: Vital Signs - 24 hr 07/18/18 18:32 Temperature 37.1 C Heart Rate 92 Respiratory 16 Rate Blood Pressure 148/84 H O2 Saturation 98 Oxygen O2 Source Room air Departure - Departure Disposition: 01 Home, Self Care Clinical Impression: Back pain Qualifiers: Back pain location: thoracic back pain Chronicity: acute Back pain laterality: bilateral Qualified Code(s): M54.6 - Pain in thoracic spine Condition: Good Record reviewed to determine appropriate education?: Yes Instructions: ED Neck Back Pain General Prescriptions: Cyclobenzaprine [Flexeril] 10 mg PO TID PRN #20 tablet PRN Reason: Spasms Ibuprofen [Motrin] 800 mg PO Q8H PRN #30 tablet PRN Reason: PAIN &/OR FEVER Comments: Call your doctor to arrange a follow-up appointment, make the next available appointment. In the interim, return anytime if worse or if new symptoms develop. Your blood pressure was elevated today on check into the emergency department. This does not mean that you have hypertension, it is a common phenomenon to come to the emergency department and have elevated blood pressure. I recommend that you see your primary care physician within the week to have it rechecked when you are feeling better. Forms: Activity restrictions
== END 2018-07-18 18:56 | disposition home or self-care (01) ==
LOC: ED 18:19
DX: M54.6 Pain in thoracic spine (principal); L83 Acanthosis nigricans; R03.0 Elevated blood-pressure reading, without diagnosis of hypertension
CPT/HCPCS: 99283

== ENCOUNTER 2019-02-19 13:24 | Emergency (ER) | payer MEDICAID ==
[2019-02-19 13:36] VITALS: BP 139/72
--- NOTE | 2019-02-19 14:28 | ED Physician Documentation ---
History of Present Illness - Stated complaint Stated Complaint: BILAT FOOT PX - Chief complaint Chief Complaint: Ext Problem - History obtained from History obtained from: Patient - History of Present Illness Timing: How many weeks ago (several) Pain level max: 6 Pain level now: 3 - Additonal information Additional information: 23-year-old male complains of bilateral foot pain. Worse in the mornings and gets better with walking throughout the day. No trauma. Review of Systems Constitutional: denies: Fever, Chills GI: denies: Vomiting Skin: denies: Rash Musculoskeletal: denies: Neck pain, Back pain Neurologic: denies: Headache PD PAST MEDICAL HISTORY - Past Medical History Past Medical History: Yes Cardiovascular: None Respiratory: None Endocrine/Autoimmune: None GI: None : None Psych: Depression, Bipolar disorder Musculoskeletal: None Derm: None - Past Surgical History Past Surgical History: No - Present Medications Home Medications: Ambulatory Orders Medication Instructions Recorded Confirmed Ibuprofen [Motrin] 800 mg PO Q8H PRN #30 tablet 02/19/19 - Allergies Allergies/Adverse Reactions: Allergies Allergy/AdvReac Type Severity Reaction Status Date / Time Sulfa (Sulfonamide Allergy Unknown Verified 02/19/19 13:36 Antibiotics) - Social History Does the pt smoke?: No Smoking Status: Never smoker Does the pt drink ETOH?: No Does the pt have substance abuse?: Yes Substance Use and Type: Marijuana - Immunizations Immunizations are current?: Yes PD ED PE NORMAL - Vitals Vital signs reviewed: Yes - General General: Alert and oriented X 3, No acute distress, Well developed/nourished - Neck Neck: Supple, no meningeal sign - Derm Derm: Warm and dry - Extremities Extremities: Other (Tender to palpation along the plantar aspect of the b ilateral feet. No redness, no swelling. No deformity. No bony tenderness.) - Neuro Neuro: Alert and oriented X 3 - Psych Psych: Normal mood, Normal affect Results - Vitals Vitals: Vital Signs - 24 hr 02/19/19 13:33 Temperature 36.5 C Heart Rate 95 Respiratory 17 Rate Blood Pressure 139/72 H O2 Saturation 99 Oxygen O2 Source Room air PD MEDICAL DECISION MAKING - ED course Complexity details: reviewed results, re-evaluated patient, considered differential, d/w patient, d/w family ED course: 23-year-old male with bilateral plantar fasciitis. Recommend insole use as well as stretching and NSAIDs. He will follow-up with his doctor. Patient counseled regarding signs and symptoms for which I believe and urgent re- evaluation would be necessary. Patient with good understanding of and agreement to plan and is comfortable going home at this time This document was made in part using voice recognition software. While efforts are made to proofread this document, sound alike and grammatical errors may occur. Departure - Departure Disposition: Home, Self Care Clinical Impression: Plantar fasciitis Condition: Good Instructions: Plantar Fasciitis, Plantar Fasciitis Tx, ED Plantar Fasciitis Follow-Up: your,doctor in 1-2 weeks. [Other] Prescriptions: Ibuprofen [Motrin] 800 mg PO Q8H PRN #30 tablet PRN Reason: PAIN &/OR FEVER Comments: Return if you worsen. Follow-up with your doctor for further care. You can try plantar fascial stretching exercises at home to see if this helps. Inserts into her shoes will also likely help to support your arch. Forms: Activity restrictions
== END 2019-02-19 14:34 | disposition home or self-care (01) ==
LOC: ED 13:24
DX: M72.2 Plantar fascial fibromatosis (principal)
CPT/HCPCS: 99283

== ENCOUNTER 2019-10-22 15:16 | Emergency (ER) | payer MEDICAID ==
[2019-10-22 15:49] LABS: BASOPHILS # (AUTO) 0.1 10^3/uL (0.0-0.1); BASOPHILS % (AUTO) 0.7 %; EOSINOPHILS # (AUTO) 0.1 10^3/uL (0.0-0.7); EOSINOPHILS % (AUTO) 0.9 %; HGB - HEMOGLOBIN 14.3 g/dL (14.0-18.0); LYMPHOCYTES # (AUTO) 2.8 10^3/uL (1.5-3.5); LYMPHOCYTES % (AUTO) 21.6 %; MEAN CORPUSCULAR HEMOGLOBIN 26.1 pg (27.0-31.0); MONOCYTES # (AUTO) 0.9 10^3/uL (0.0-1.0); MONOCYTES % (AUTO) 7.1 %; NEUTROPHILS # (AUTO) 8.6 10^3/uL (1.5-6.6); PLT - PLATELET COUNT 366 10^3/uL (130-450); RED BLOOD COUNT 5.48 10^6/uL (4.70-6.10); RED CELL DISTRIBUTION WIDTH 13.3 % (12.0-15.0); WHITE BLOOD COUNT 12.7 x10^3/uL (4.8-10.8)
[2019-10-22 15:51] LABS: BILIRUBIN,URINE NEGATIVE (NEGATIVE); GLUCOSE, URINE (UA) NEGATIVE (NEGATIVE); KETONES,URINE (UA) NEGATIVE (NEGATIVE); LEUKOCYTE ESTERASE, URINE NEGATIVE (NEGATIVE); NITRITE,URINE NEGATIVE (NEGATIVE); OCCULT BLOOD,URINE NEGATIVE (NEGATIVE); PH,URINE 5.5 PH (5.0-7.5); PROTEIN,URINE NEGATIVE (NEGATIVE); UROBILINOGEN,URINE 0.2 (NORMAL) E.U./dL (NORMAL)
[2019-10-22 15:52] LABS: CLARITY,URINE CLEAR (CLEAR)
[2019-10-22 16:03] LABS: ALBUMIN 4.4 g/dL (3.2-5.5); ALBUMIN/GLOBULIN RATIO 1.2 (1.0-2.2); BILIRUBIN,TOTAL 0.5 mg/dL (0.2-1.0); CALCIUM 9.4 mg/dL (8.5-10.3); CREATININE 0.7 mg/dL (0.6-1.2); TOTAL PROTEIN 8.2 g/dL (6.7-8.2)
[2019-10-22] MEDS ORDERED: ONDANSETRON 4 MG/2 ML VIAL IVP STA ×2 (17:20→19:17)
[2019-10-22] MEDS ORDERED: HYDROmorphone 1 MG/ML CARPUJECT IVP STA ×3 (17:20→19:40)
--- NOTE | 2019-10-22 17:22 | ED Physician Documentation ---
PD HPI ABD PAIN - Stated complaint Stated Complaint: ABD PX - Chief complaint Chief Complaint: Abd Pain - History obtained from History obtained from: Patient, Family - History of Present Illness Timing - onset: Other (He is had about 4 hours now of epigastric and right upper quadrant pain that is severe, not the left upper quadrant in contrast to the nurses notes. It is associated with nausea. He has had a similar episode before that was concerning for a gallbladder issue. No abdominal surgeries in the past.) Review of Systems Ten Systems: 10 systems reviewed and negative Constitutional: denies: Fever, Chills Nose: reports: Reviewed and negative Throat: reports: Reviewed and negative Cardiac: reports: Reviewed and negative Respiratory: reports: Reviewed and negative PD PAST MEDICAL HISTORY - Past Medical History Cardiovascular: None Respiratory: None Endocrine/Autoimmune: None GI: None : None Psych: Depression, Bipolar disorder Musculoskeletal: None Derm: None - Past Surgical History Past Surgical History: No - Present Medications Home Medications: Ambulatory Orders Medication Instructions Recorded Confirmed Ibuprofen [Motrin] 800 mg PO Q8H PRN #30 tablet 02/19/19 Ciprofloxacin HCl [Cipro] 500 mg PO BID #20 tablet 10/22/19 Metronidazole [Flagyl] 500 mg PO BID #20 tablet 10/22/19 Oxycodone HCl/Acetaminophen 1 - 2 each PO Q6H PRN #7 tablet 10/22/19 [Percocet 5-325 mg Tablet] - Allergies Allergies/Adverse Reactions: Allergies Allergy/AdvReac Type Severity Reaction Status Date / Time Sulfa (Sulfonamide Allergy Unknown Verified 10/22/19 15:30 Antibiotics) - Social History Does the pt smoke?: No Smoking Status: Never smoker Does the pt drink ETOH?: No Does the pt have substance abuse?: Yes - Immunizations Immunizations are current?: Yes PD ED PE NORMAL - Vitals Vital signs reviewed: Yes - General General: Alert and oriented X 3, No acute distress - HEENT HEENT: PERRL, EOMI - Neck Neck: Supple, no meningeal sign, No bony TTP - Cardiac Cardiac: RRR, No murmur - Respiratory Respiratory: No respiratory distress, Clear bilaterally - Abdomen Abdomen: Normal bowel sounds, Soft, Other (Mild right upper quadrant tenderness with equivocal or Benz sign) - Back Back: No CVA TTP, No spinal TTP - Derm Derm: Normal color, Warm and dry - Extremities Extremities: No edema, No calf tenderness / cord - Neuro Neuro: Alert and oriented X 3, Normal speech Results - Vitals Vitals: Vital Signs - 24 hr 10/22/19 10/22/19 10/22/19 15:27 18:20 18:21 Temperature 36.7 C Heart Rate 99 92 92 Respiratory 17 18 20 Rate Blood Pressure 150/81 H 135/79 H 135/79 H O2 Saturation 98 98 98 10/22/19 10/22/19 10/22/19 19:14 19:43 20:03 Temperature Heart Rate 88 86 86 Respiratory 18 166 H 16 Rate Blood Pressure 149/82 H 151/74 H 142/71 H O2 Saturation 99 100 96 Oxygen O2 Source Room air - Labs Labs: Laboratory Tests 10/22/19 10/22/19 10/22/19 15:40 15:45 15:45 WBC 12.7 H RBC 5.48 Hgb 14.3 Hct 43.3 MCV 79.0 L MCH 26.1 L MCHC 33.0 RDW 13.3 Plt Count 366 MPV 9.0 Neut # (Auto) 8.6 H Lymph # (Auto) 2.8 [place]ona # (Auto) 0.9 Eos # (Auto) 0.1 Baso # (Auto) 0.1 Absolute Nucleated RBC 0.00 Nucleated RBC % 0.0 Sodium 139 Potassium 4.0 Chloride 102 Carbon Dioxide 24 Anion Gap 13.0 BUN 10 Creatinine 0.7 Estimated GFR (MDRD) 140 Glucose 97 Calcium 9.4 Total Bilirubin 0.5 AST 49 H ALT 86 H Alkaline Phosphatase 66 Total Protein 8.2 Albumin 4.4 Globulin 3.8 Albumin/Globulin Ratio 1.2 Lipase 34 Urine Color YELLOW Urine Clarity CLEAR Urine pH 5.5 Ur Specific [place] >=1.030 H Urine Protein NEGATIVE Urine Glucose (UA) NEGATIVE Urine Ketones NEGATIVE Urine Occult Blood NEGATIVE Urine Nitrite NEGATIVE Urine Bilirubin NEGATIVE Urine Urobilinogen 0.2 (NORMAL) Ur Leukocyte Esterase NEGATIVE Ur Microscopic Review NOT INDICATED Urine Culture Comments NOT INDICATED - Rads (name of study) CT A/P Radiology: EMP read contemporaneously (Chronic appearing dilatated and of the appendix with fecaliths, fatty liver) Right upper quadrant ultrasound Radiology: EMP read contemporaneously (No obvious cholelithiasis, fatty liver) PD MEDICAL DECISION MAKING - ED course ED course: 23-year-old gentleman presents with severe epigastric pain necessitating multiple rounds of narcotics, but then became pain-free but still some diffuse tenderness including in the right lower quadrant. Initial concern was for a biliary etiology but his ultrasound was normal except for fatty liver. This was followed by CT with results as shown and discussed after which with Dr. Toro the surgeon who recommended outpatient management with antibiotics and follow-up in the office. Departure - Departure Disposition: 01 Home, Self Care Clinical Impression: Appendicolith Abdominal pain Qualifiers: Abdominal location: epigastric Qualified Code(s): R10.13 - Epigastric pain Condition: Good Record reviewed to determine appropriate education?: Yes Instructions: ED Abdominal Pain Appendx Poss Follow-Up: Abbie Toro MD [Provider Admit Priv/Credential] - Prescriptions: Ciprofloxacin HCl [Cipro] 500 mg PO BID #20 tablet Metronidazole [Flagyl] 500 mg PO BID #20 tablet Oxycodone HCl/Acetaminophen [Percocet 5-325 mg Tablet] 1 - 2 each PO Q6H PRN #7 tablet PRN Reason: pain Comments: Return in 12 hours if not better, anytime if worse or if you develop a fever. Follow-up with Dr. Toro in the office for reevaluation, next available appointment.
[2019-10-22] MEDS ORDERED: KETOROLAC 30 MG/ML VIAL IVP STA (19:17)
[2019-10-22] MEDS ORDERED: IOVERSOL 320 100 ML VIAL IVP ONE ×2 (19:44→20:01)
--- NOTE | 2019-10-22 19:46 | Ultrasound Report ---
Reason: RUQ pain Procedure Date: 10/22/2019 Accession Number: [id number] / [id number] Procedure: US - Abdomen Limited CPT Code: Final Report FULL RESULT: EXAM: ABDOMEN ULTRASOUND LIMITED, RUQ EXAM DATE: 10/22/2019 07:11 PM. CLINICAL HISTORY: RUQ pain. COMPARISON: ABDOMEN LIMITED 08/08/2016 8:24 PM ABDOMEN/PELVIS W/O 02/20/2018 1:31 PM. TECHNIQUE: Real-time scanning was performed with static images obtained. FINDINGS: Liver: Significantly echogenic parenchyma with coarse echotexture and poor acoustic penetration. 20.2 cm. Main portal vein flow: Hepatopetal. Gallbladder: Normal. No stones or sonographic Benz's sign. Wall thickness upper limit of normal. Biliary System: CBD measures 6 mm. No intrahepatic or extrahepatic ductal dilatation. Other: The right kidney is unremarkable without hydronephrosis or visualized stone. IMPRESSION: Enlarged liver with fatty infiltration. RADIA
--- NOTE | 2019-10-22 20:26 | CT Report ---
Reason: IV only, upper abd pain Procedure Date: 10/22/2019 Accession Number: [id number] / [id number] Procedure: CT - Abdomen/Pelvis W CPT Code: Addended Final Report FULL RESULT: EXAM: CT ABDOMEN AND PELVIS EXAM DATE: 10/22/2019 08:03 PM. CLINICAL HISTORY: IV only, upper abd pain. COMPARISONS: ABDOMEN/PELVIS W/O 02/20/2018 1:31 PM. TECHNIQUE: Routine helical CT imaging was performed through the abdomen and pelvis. IV contrast: OPTI 320 100ML. Enteric contrast: No. Reconstructions: Coronal and sagittal. In accordance with CT protocol optimization, one or more of the following dose reduction techniques were utilized for this exam: automated exposure control, adjustment of mA and/or KV based on patient size, or use of iterative reconstructive technique. FINDINGS: Lung Bases: Unremarkable. Liver: Diffuse hepatic steatosis. no masses. Gallbladder/Bile Ducts: Unremarkable. Spleen: Normal. Pancreas: Normal. Adrenal Glands: Normal. Kidneys: Normal. No masses or hydronephrosis. Peritoneal Cavity/Bowel: Normal. No free fluid, free air or adenopathy. No masses or acute inflammatory process. Prominent/dilated appendix measuring 11 mm with tiny hyperdense intraluminal contents. Appendix appears slightly more dilated since prior dated 02/20/2018, however there is no periappendiceal fat stranding. Findings support mucocele. Findings do not support acute inflammation. Pelvic Organs: Normal. The bladder and visualized pelvic organs are within normal limits. Vasculature: No aneurysms or other significant abnormality. Bones: No significant abnormality. Other: None. IMPRESSION: Diffuse hepatic steatosis without focal hepatic abnormality. Chronic appearing dilatation of appendix measuring 11 mm with fecaliths. Findings most consistent with mucocele. This finding can be seen associated with appendiceal neoplasm (mucinous cystadenoma). Signs of acute inflammatory changes in the appendix. RADIA ADDENDUM: 10/22/19 20:39 Impression should state no signs of acute inflammatory changes in the appendix.
[2019-10-22] MEDS ORDERED: CIPROFLOXACIN 250 MG TABLET PO STA (20:50)
[2019-10-22] MEDS ORDERED: metroNIDAZOLE 250 MG TABLET PO STA (20:50)
[2019-10-22] MEDS ORDERED: oxyCODONE/ACET 5/325 Prepack 4 PO STA (20:50)
[2019-10-22 21:13] VITALS: BP 136/72
== END 2019-10-22 21:05 | disposition home or self-care (01) ==
LOC: ED 15:16
DX: K38.1 Appendicular concretions (principal); K76.0 Fatty (change of) liver, not elsewhere classified
CPT/HCPCS: 36415; 74177; 76705; 80053; 81001; 81003; 83690; 85025; 87086; 96374; 96375; 96376; 99285

== ENCOUNTER 2019-10-22 21:45 | Day surgery (SDC) | payer MEDICAID ==
[2019-10-22] MEDS ORDERED: ONDANSETRON 4 MG/2 ML VIAL IVP STA (21:51)
[2019-10-22] MEDS ORDERED: HYDROmorphone 1 MG/ML CARPUJECT IVP STA (21:51)
[2019-10-22] MEDS ORDERED: PIPERACILLIN/TAZOBACTAM 4.5 GM in SODIUM CHLORIDE 0.9% MINIBAG 100 ML IV STA (21:53)
[2019-10-22] MEDS ORDERED: HYDROmorphone 1 MG/ML CARPUJECT IVP PRN (21:55)
[2019-10-22] MEDS ORDERED: ONDANSETRON 4 MG/2 ML VIAL IVP PRN (21:56)
--- NOTE | 2019-10-22 21:57 | ED Physician Documentation ---
PD HPI ABD PAIN - Stated complaint Stated Complaint: ABD PX - Chief complaint Chief Complaint: Abd Pain - History obtained from History obtained from: Patient, Family - History of Present Illness Timing - onset: Today (I had seen him earlier this evening, started with epigastric pain but then developed right lower quadrant tenderness. CT showed appendicoliths, may be some chronic appendicitis. After consultation with the surgeon he was discharged with antibiotics with the plan to follow-up in the clinic for further evaluation, shortly after discharge he could not tolerate the pain and returns for reevaluation.) Review of Systems Ten Systems: 10 systems reviewed and negative Constitutional: denies: Fever, Chills GI: reports: Abdominal Pain, Nausea. denies: Vomiting : denies: Dysuria, Frequency PD PAST MEDICAL HISTORY - Past Medical History Cardiovascular: None Respiratory: None Endocrine/Autoimmune: None GI: None : None Psych: Depression, Bipolar disorder Musculoskeletal: None Derm: None - Past Surgical History Past Surgical History: No - Present Medications Home Medications: Ambulatory Orders Medication Instructions Recorded Confirmed Ibuprofen [Motrin] 800 mg PO Q8H PRN #30 tablet 02/19/19 Ciprofloxacin HCl [Cipro] 500 mg PO BID #20 tablet 10/22/19 Metronidazole [Flagyl] 500 mg PO BID #20 tablet 10/22/19 Oxycodone HCl/Acetaminophen 1 - 2 each PO Q6H PRN #7 tablet 10/22/19 [Percocet 5-325 mg Tablet] - Allergies Allergies/Adverse Reactions: Allergies Allergy/AdvReac Type Severity Reaction Status Date / Time Sulfa (Sulfonamide Allergy Unknown Verified 10/22/19 21:54 Antibiotics) - Social History Does the pt smoke?: No Smoking Status: Never smoker Does the pt drink ETOH?: No Does the pt have substance abuse?: Yes - Immunizations Immunizations are current?: Yes PD ED PE NORMAL - Vitals Vital signs reviewed: Yes - General General: Alert and oriented X 3, Other (Appears uncomfortable and sweaty) - HEENT HEENT: PERRL, EOMI - Neck Neck: Supple, no meningeal sign, No bony TTP - Cardiac Cardiac: RRR, No murmur - Respiratory Respiratory: No respiratory distress, Clear bilaterally - Abdomen Abdomen: Soft, Other (Mild tenderness in the right lower quadrant) - Back Back: No CVA TTP, No spinal TTP - Derm Derm: Normal color, Warm and dry - Extremities Extremities: No edema, No calf tenderness / cord - Neuro Neuro: Alert and oriented X 3, Normal speech Results - Vitals Vitals: Vital Signs - 24 hr 10/22/19 21:52 Temperature 36.4 C L Heart Rate 87 Respiratory 18 Rate Blood Pressure 150/79 H O2 Saturation 99 Oxygen O2 Source Room air PD MEDICAL DECISION MAKING - ED course ED course: 23-year-old gentleman with potential smoldering appendicitis, somewhat atypical history bounces back with uncontrolled pain. Spoke with Dr. Muna andrew who plans to take him out of the OR in the morning laparoscopic evaluation and likely appendectomy. He was written for every 6 hours Zosyn, and PRN pain and nausea medicines as well as maintenance fluids. Departure - Departure Disposition: ED Transfer to [facility] Clinical Impression: Acute abdomen Condition: Fair
[2019-10-22] MEDS ORDERED: DEXTROSE 5%-LACTATED RINGERS 1,000 ML IV SCH (22:00)
[2019-10-23] MEDS: PIPERACILLIN/TAZOBACTAM 4.5 GM in SODIUM CHLORIDE 0.9% MINIBAG 100 ML IV SCH ×2 (04:49→05:02)
--- NOTE | 2019-10-23 05:59 | ANESTHESIA ---
Pre-Anesthesia VS, & Labs - Diagnosis appendicitis - Procedure laparoscopic appendectomy Vital Signs: Temp Pulse Resp BP Pulse Ox 36.5 C 71 16 102/57 L 97 10/23/19 02:59 10/23/19 05:33 10/23/19 05:33 10/23/19 05:33 10/23/19 05:33 Height 6 ft 1 in Weight (kg) 115.666 kg Body Mass Index 33.6 - NPO >8 hours Home Medications and Allergies Active Medications Hydromorphone HCl (Dilaudid Inj Carp) 1 mg IVP Q2H PRN PRN Reason: PAIN Dextrose/Lactated Ringer's (D5lr) 1,000 mls @ 125 mls/hr IV .Q8H [facility] Last Admin: 10/23/19 04:48 Dose: Not Given Piperacillin Sod/Tazobactam (Sod 4.5 gm/ Sodium Chloride) 100 mls @ 100 mls/hr IV Q6H [facility] Last Admin: 10/23/19 05:02 Dose: 100 mls/hr Ondansetron HCl (Zofran Inj) 4 mg IVP Q6H PRN PRN Reason: Nausea / Vomiting Allergies/Adverse Reactions: Allergies Allergy/AdvReac Type Severity Reaction Status Date / Time Sulfa (Sulfonamide Allergy Unknown Verified 10/22/19 21:54 Antibiotics) Anes History & Medical History - Anesthetic History Family history of Anesthesia Complications: Denies Family history of Malignant Hyperthermia: Denies - Medical History Cardiovascular: reports: None Pulmonary: reports: None Gastrointestinal: reports: None Urinary: reports: None Neuro: reports: None Musculoskeletal: reports: None Endocrine/Autoimmune: reports: None Blood Disorders: reports: None Skin: reports: None Smoking Status: Never smoker Psychosocial: reports: No issues indicated Exam General: Alert, Oriented x3, Cooperative, No acute distress Dental: Other (chipped right upper molar) Mouth Openin Fingerbreadth Neck Mobility: Normal Mallampati classification: IV Thyromental Distance: greater than 6 cm Respiratory: Lungs clear, Normal breath sounds, No respiratory distress, No accessory muscle use Cardiovascular: Regular rate, Normal S1, Normal S2, No murmurs Mental/Cognitive Status: Alert/Oriented X3, Normal for patient Plan Anesthesia Type: General Consent for Procedure(s) Verified and Reviewed: Yes Code Status: Attempt Resuscitation ASA classification: 2-Mild systemic disease Is this case an emergency?: No
[2019-10-23] MEDS ORDERED: DEXAMETHASONE 4 MG/ML VIAL IVP ONE (06:04)
[2019-10-23] MEDS ORDERED: ROCURONIUM 50 MG/5 ML VIAL IVP ONE (06:04)
[2019-10-23] MEDS ORDERED: PROPOFOL 200 MG/20 ML VIAL IVP ONE (06:04)
[2019-10-23] MEDS ORDERED: KETOROLAC 30 MG/ML VIAL IVP ONE (06:04)
[2019-10-23] MEDS ORDERED: NEOSTIGMINE 1 MG/1 ML 10 ML MDV IVP ONE (06:04)
[2019-10-23] MEDS ORDERED: MIDAZOLAM 2 MG/2 ML VIAL IVP ONE (06:04)
[2019-10-23] MEDS ORDERED: fentaNYL 100 MCG/2 ML VIAL IVP ONE (06:04)
[2019-10-23] MEDS ORDERED: GLYCOPYRROLATE 1 MG/5 ML VIAL IVP ONE (06:04)
--- NOTE | 2019-10-23 06:22 | HISTORY & PHYSICAL EXAMINATION ---
HPI - Admitted From Admitted from: ED - History Obtained From Records Reviewed: RN notes reviewed, Old records reviewed History obtained from: Patient, Family Exam limitations: No limitations - History of Present Illness Severity at the worst: reports: Severe Pain Quality: reports: Sharp, Dull, Burning Context-Pain started w/: reports: Rest Timing: reports: Gradual onset, Constant Duration: reports: Days: (2) Improved with: reports: Nothing Worsened by: reports: Exertion, Inspiration, Movement, Palpation HPI Comment/Other: 23 year old man with right lower quadrant pain. Presented to the ED and was seen and found to have a somewhat dilated appendix with fecaliths but without evidence of acute appendicitis. Was discharged home to followup in clinic but reports the pain became so severe that he turned the car around and returned to the ED. Pain has resolved now. Last bowel movement was at least 24 hours ago. No vomiting or fever but he has been nauseated. PMH/PSH - Past Medical History Cardiovascular: positive: None Respiratory: positive: None Neuro: positive: None Endocrine/Autoimmune: positive: None GI: positive: None : positive: None Psych: positive: Depression, Bipolar disorder Musculoskeletal: positive: None Derm: positive: None MRSA Hx?: No Social & Family Hx - Living Situation Living Arrangement: At home - Social History Does the pt smoke?: No Smoking Status: Never smoker Does the pt drink ETOH?: No Does the pt have substance abuse?: Yes - POLST Patient has POLST: No Meds/Allgy - Home Medications Home Medications: Ambulatory Orders Medication Instructions Recorded Confirmed Ibuprofen [Motrin] 800 mg PO Q8H PRN #30 tablet 02/19/19 Ciprofloxacin HCl [Cipro] 500 mg PO BID #20 tablet 10/22/19 Metronidazole [Flagyl] 500 mg PO BID #20 tablet 10/22/19 Oxycodone HCl/Acetaminophen 1 - 2 each PO Q6H PRN #7 tablet 10/22/19 [Percocet 5-325 mg Tablet] - Allergies Allergies/Adverse Reactions: Allergies Allergy/AdvReac Type Severity Reaction Status Date / Time Sulfa (Sulfonamide Allergy Unknown Verified 10/22/19 21:54 Antibiotics) Review of Systems - Gastrointestinal Gastrointestinal: reports: Abdominal pain, Nausea - All Other Systems All Other Systems: reports: Reviewed and negative Exam - Vital Signs Reviewed Vital Signs: Yes Vital Signs: Vital Signs x48h Temp Pulse Resp BP Pulse Ox 12/27/19 05:33 71 16 102/57 L 97 10/23/19 02:59 36.5 C 79 18 107/45 L 99 10/23/19 01:00 74 18 105/56 L 97 10/22/19 23:58 36.3 C L 78 14 96/43 L 98 10/22/19 23:04 64 12 100/54 L 98 - Physical Exam General Appearance: positive: No acute distress, Alert Eyes Bilateral: positive: Normal inspection, PERRL, EOMI ENT: positive: ENT inspection nml, Pharynx nml, No signs of dehydration Neck: positive: Nml inspection, No JVD, Trachea midline Respiratory: positive: Chest non-tender, No respiratory distress, Breath sounds nml Cardiovascular: positive: Regular rate & rhythm, No murmur Peripheral Pulses: positive: 1+ Abdomen: positive: Nml bowel sounds, No distention, Tenderness (right lower quadrant- minimal) Skin: positive: Color nml Neurologic/Psychiatric: positive: Oriented x3, CN's nml (2-12) Results - Lab Results Lab results reviewed: Yes Other Lab Results: WBC 12.7 Slight transaminitis All other values are reassuring. - Diagnostic Imaging Results Diagnostic Imaging Results Comments: EXAM: CT ABDOMEN AND PELVIS EXAM DATE: 10/22/2019 08:03 PM. CLINICAL HISTORY: IV only, upper abd pain. COMPARISONS: ABDOMEN/PELVIS W/O 02/20/2018 1:31 PM. TECHNIQUE: Routine helical CT imaging was performed through the abdomen and pelvis. IV contrast: OPTI 320 100ML. Enteric contrast: No. Reconstructions: Coronal and sagittal. In accordance with CT protocol optimization, one or more of the following dose reduction techniques were utilized for this exam: automated exposure control, adjustment of mA and/or KV based on patient size, or use of iterative reconstructive technique. FINDINGS: Lung Bases: Unremarkable. Liver: Diffuse hepatic steatosis. no masses. Gallbladder/Bile Ducts: Unremarkable. Spleen: Normal. Pancreas: Normal. Adrenal Glands: Normal. Kidneys: Normal. No masses or hydronephrosis. Peritoneal Cavity/Bowel: Normal. No free fluid, free air or adenopathy. No masses or acute inflammatory process. Prominent/dilated appendix measuring 11 mm with tiny hyperdense intraluminal contents. Appendix appears slightly more dilated since prior dated 02/20/2018, however there is no periappendiceal fat stranding. Findings support mucocele. Findings do not support acute inflammation. Pelvic Organs: Normal. The bladder and visualized pelvic organs are within normal limits. Vasculature: No aneurysms or other significant abnormality. Bones: No significant abnormality. Other: None. IMPRESSION: Diffuse hepatic steatosis without focal hepatic abnormality. Chronic appearing dilatation of appendix measuring 11 mm with fecaliths. Findings most consistent with mucocele. This finding can be seen associated with appendiceal neoplasm (mucinous cystadenoma). Signs of acute inflammatory changes in the appendix. [facility]IA ADDENDUM: 10/22/19 20:39 Impression should state no signs of acute inflammatory changes in the appendix. [employer] Building Supervisor: Reading Radiologist: Muriel Santos MD Releasing Radiologist: Muriel Santos MD Released Date Time: 10/22/192030 Report 30 cc: Fabio Perez MD ED Impression/Plan - Problem List Problem List: Likely early acute appendicitis. I have recommended Laparoscopic appendectomy. After a careful discussion of the risks and benefits of the procedure, the patient has expressed a desire to complete it this morning.
[2019-10-23] MEDS ORDERED: BUPIVACAINE 0.5% PF 30 ML VIAL ONE (06:26)
[2019-10-23] MEDS ORDERED: LIDOCAINE 1%-EPI 1:100000 20 ML MDV ONE (06:27)
[2019-10-23] MEDS ORDERED: LACTATED RINGERS 1,000 ML IV ONE ×2 (07:15)
--- NOTE | 2019-10-23 07:45 | OPERATIVE REPORT ---
Operative Report - General Procedure Date: 10/23/19 Planned Procedure: Laparoscopic appendectomy Pre-Op Diagnosis: Acute appendicitis Procedure Performed: Laparoscopic appendectomy Post Op Diagnosis: Acute appendicitis - Procedure Note Primary Surgeon: Muna Anesthesia Provider: DAVIN Soto Anesthesia Technique: General ET tube, Local Pathology: Appendix in formalin to pathology IV Fluids (mL): 500 Estimated Blood Loss (mL): 20 Indications: Acute appendicitis Findings: Dilated and mildly inflammed appendix Complications: None apparent - Other Other Information/Narrative: After obtaining informed consent, the patient is brought to the operating room and placed in the supine position on the operating table. Following successful induction of general endotracheal anesthesia, appropriate padding of all bony prominences, and placement of appropriate monitors, the abdomen was prepped and draped in the standard surgical fashion. A timeout was held per scope protocol. All elements of the surgical safety checklist were followed before, during, and after the procedure. Following infiltration with local anesthetic to create a field block, an incision was created inferior to the umbilicus and carried down through the skin and subcutaneous tissue to reveal the fascia below. 2-0 Vicryl retention sutures were placed on either side of the midline and the abdomen was entered under direct vision using a 15 blade scalpel. A 10 mm blunt Chery balloon trocar was placed in the abdominal cavity and it was insufflated to 15 mmHg pressure. The patient was placed in Trendelenburg position with the left side rotated toward the floor. The camera was placed in the abdominal cavity and we immediately visualized the cecum in the right lower quadrant. It was rotated medially to reveal a somewhat dilated and turgid appendix. The appendix was grasped and elevated revealing its attachment to the cecum. A window was creat ed in the mesoappendix at this location. A laparoscopic stapling device was used to ligate the appendix and liberated from its attachment to the cecum. 2 more loads of the device were used to divide its mesentery.The appendix was placed in an Endo Catch bag and removed via the umbilical port with a camera in the epigastric position. The camera was replaced in the operative site examined. It was irrigated with warm saline solution and aspirated free of all fluid and particulate matter. The table was flattened and the abdomen evaluated once again. The trochars were removed under direct vision and abdomen was desufflated. The umbilical incision was closed with interrupted Vicryl suture and Monocryl stitches were placed in the skin. All sponge, needles, and instrument counts were correct at the conclusion of the case. The patient was allowed to wake from anesthesia without difficulty and taken to the postanesthesia care unit in good condition.
[2019-10-23] MEDS ORDERED: IBUPROFEN 600 MG TABLET PO PRN (07:52)
[2019-10-23] MEDS ORDERED: ONDANSETRON 4 MG/2 ML VIAL IVP PRN (07:52)
[2019-10-23] MEDS ORDERED: ACETAMINOPHEN 325 MG TABLET PO PRN (07:52)
[2019-10-23] MEDS ORDERED: oxyCODONE 5 MG TABLET PO PRN (07:52)
[2019-10-23] MEDS ORDERED: oxyCODONE 5 MG TABLET ONE (08:56)
[2019-10-23] MEDS ORDERED: ONDANSETRON 4 MG/2 ML VIAL ONE (09:14)
[2019-10-23 09:34] VITALS: BP 121/61
== END 2019-10-23 06:04 | disposition home or self-care (01) ==
LOC: ED 21:45 → SDS 10-23 06:03
PROVIDERS: ATTEND Surgery
PROC: 0DTJ4ZZ Resection of Appendix, Percutaneous Endoscopic Approach (ICD-10-PCS; principal; 2019-10-23 06:30)
DX: K35.80 Unspecified acute appendicitis (principal); K38.1 Appendicular concretions; K76.0 Fatty (change of) liver, not elsewhere classified
CPT/HCPCS: 36415; 44970; 74177; 76705; 80053; 81003; 83690; 85025; 88304; 96374; 96375; 96376; 99285; A9270; J1170; J7120; Q9967; 81001; 87086

== ENCOUNTER 2020-07-04 20:41 | Emergency (ER) | payer MEDICAID ==
--- NOTE | 2020-07-04 22:40 | ED Physician Documentation ---
PD HPI BACK PAIN - Stated complaint Stated Complaint: LOWER BACK PX - Chief complaint Chief Complaint: Back Pain - History obtained from History obtained from: Patient - History of Present Illness Timing - onset: How many hours ago (2) Timing - details: Abrupt onset Pain level now: 6 Location: Other (across lower back) Quality: Pain, Spasm Associated symptoms: No: Fever, Weakness, Numbness, Incontinent of urine, Unable to urinate, Hematuria, Incontinent of stool Improves with: Rest Worsened by: Movement Similar symptoms before: Has not had sx before Recently seen: Emergency Dept (T+R 06/07 for back pain) - Additional information Additional information: c/o sudden onset LBP, across lower back, two hours ago when he stood up from s itting in a chair. pain is distinctly worse with movement. Review of Systems Constitutional: denies: Fever GI: denies: Abdominal Pain : denies: Dysuria, Frequency, Unable to Void, Incontinent, Hematuria Musculoskeletal: reports: Back pain Neurologic: denies: Focal weakness, Numbness PD PAST MEDICAL HISTORY - Past Medical History Past Medical History: Yes Cardiovascular: None Respiratory: None Neuro: None Endocrine/Autoimmune: None GI: None : None Psych: Depression, Bipolar disorder Musculoskeletal: None Derm: None - Past Surgical History Past Surgical History: No General: Appendectomy - Present Medications Home Medications: Ambulatory Orders Medication Instructions Recorded Confirmed Ibuprofen [Motrin] 800 mg PO Q8H PRN #30 tablet 02/19/19 Ciprofloxacin HCl [Cipro] 500 mg PO BID #20 tablet 10/22/19 Oxycodone HCl/Acetaminophen 1 - 2 each PO Q6H PRN #7 tablet 10/22/19 [Percocet 5-325 mg Tablet] metroNIDAZOLE [Flagyl] 500 mg PO BID #20 tablet 10/22/19 Ondansetron Odt [Zofran Odt] 4 mg TL Q6H PRN #10 tablet 10/23/19 oxyCODONE [Roxicodone] 5 mg PO Q4HR PRN #20 tablet 10/23/19 Cyclobenzaprine [Flexeril] 10 mg PO TID PRN #20 tablet 06/07/20 Oxycodone HCl/Acetaminophen 1 - 2 each PO Q6H PRN #14 tablet 06/07/20 [Percocet 5-325 mg Tablet] Oxycodone HCl/Acetaminophen 1 - 2 each PO Q6H PRN #14 tablet 07/04/20 [Percocet 5-325 mg Tablet] diazePAM [Valium] 5 mg PO TID PRN #15 tablet 07/04/20 - Allergies Allergies/Adverse Reactions: Allergies Allergy/AdvReac Type Severity Reaction Status Date / Time Sulfa (Sulfonamide Allergy Unknown Verified 06/07/20 03:51 Antibiotics) - Social History Does the pt smoke?: No Smoking Status: Never smoker Does the pt drink ETOH?: No Does the pt have substance abuse?: Yes - Immunizations Immunizations are current?: Yes - POLST Patient has POLST: No PD ED PE NORMAL - Vitals Vital signs reviewed: Yes - General General: Alert and oriented X 3, No acute distress (NAD at rest, appears to have painful distress with movement involving lower back), Well developed/nourished - Abdomen Abdomen: Soft, Non tender - Back Back: No CVA TTP, No spinal TTP - Derm Derm: Normal color, Warm and dry, No rash Results - Vitals Vitals: Vital Signs - 24 hr 07/04/20 07/04/20 20:57 23:13 Temperature 36.9 C Heart Rate 106 H 98 Respiratory 16 14 Rate Blood Pressure 146/95 H 145/90 H O2 Saturation 98 99 Oxygen O2 Source Room air PD MEDICAL DECISION MAKING - ED course Complexity details: reviewed old records, considered differential, d/w patient Departure - Departure Disposition: 01 Home, Self Care Clinical Impression: Lumbar strain Qualifiers: Encounter type: initial encounter Qualified Code(s): S39.012A - Strain of muscle, fascia and tendon of lower back, initial encounter Condition: Good Instructions: ED Sprain Strain Lumbar Prescriptions: Oxycodone HCl/Acetaminophen [Percocet 5-325 mg Tablet] 1 - 2 each PO Q6H PRN #14 tablet PRN Reason: pain diazePAM [Valium] 5 mg PO TID PRN #15 tablet PRN Reason: Spasms Discharge Date/Time: 07/04/20 23:15
[2020-07-04] MEDS ORDERED: diazePAM 5 MG TABLET PO STA (23:03)
[2020-07-04] MEDS ORDERED: oxyCODONE 5 MG TABLET PO STA (23:03)
[2020-07-04 23:14] VITALS: BP 145/90
== END 2020-07-04 23:15 | disposition home or self-care (01) ==
LOC: ED 20:41
DX: S39.012A Strain of muscle, fascia and tendon of lower back, initial encounter (principal); X58.XXXA Exposure to other specified factors, initial encounter
CPT/HCPCS: 99282; 99283; A9270

== ENCOUNTER 2020-10-31 10:00 | Outpatient (CLI) | payer MEDICAID | END 2020-10-31 23:59 | disposition home or self-care (01) | LOC: LAB.R 10:00 | PROVIDERS: ATTEND Family Medicine | DX: J06.9 Acute upper respiratory infection, unspecified (principal); Z20.822 Contact with and (suspected) exposure to COVID-19 | CPT/HCPCS: 87275; 87276 ==

== ENCOUNTER 2023-01-01 15:38 | Emergency (ER) | payer MEDICAID ==
[2023-01-01 15:48] VITALS: BP 143/71
[2023-01-01 16:02] LABS: BILIRUBIN,URINE NEGATIVE (NEGATIVE); GLUCOSE, URINE (UA) NEGATIVE (NEGATIVE); KETONES,URINE (UA) NEGATIVE (NEGATIVE); LEUKOCYTE ESTERASE, URINE NEGATIVE (NEGATIVE); NITRITE,URINE NEGATIVE (NEGATIVE); OCCULT BLOOD,URINE NEGATIVE (NEGATIVE); PROTEIN,URINE NEGATIVE (NEGATIVE); UROBILINOGEN,URINE 0.2 (NORMAL) E.U./dL (NORMAL)
[2023-01-01 16:03] LABS: CLARITY,URINE CLEAR (CLEAR)
[2023-01-01 16:09] LABS: BASOPHILS # (AUTO) 0.1 10^3/uL (0.0-0.1); BASOPHILS % (AUTO) 0.4 %; EOSINOPHILS # (AUTO) 0.1 10^3/uL (0.0-0.7); EOSINOPHILS % (AUTO) 0.6 %; HCT - HEMATOCRIT 46.6 % (42.0-52.0); HGB - HEMOGLOBIN 15.6 g/dL (14.0-18.0); LYMPHOCYTES # (AUTO) 0.6 10^3/uL (1.5-3.5); LYMPHOCYTES % (AUTO) 4.2 %; MEAN CORPUSCULAR HEMOGLOBIN 26.5 pg (27.0-31.0); MEAN CORPUSCULAR HGB CONC 33.5 g/dL (32.0-36.0); MEAN CORPUSCULAR VOLUME 79.1 fL (80.0-94.0); MEAN PLATELET VOLUME 8.9 fL (7.4-11.4); NEUTROPHILS # (AUTO) 12.2 10^3/uL (1.5-6.6); PLT - PLATELET COUNT 285 10^3/uL (130-450); RED BLOOD COUNT 5.89 10^6/uL (4.70-6.10); RED CELL DISTRIBUTION WIDTH 12.8 % (12.0-15.0); WHITE BLOOD COUNT 14.1 x10^3/uL (4.8-10.8)
[2023-01-01 16:19] LABS: ALBUMIN 4.3 g/dL (3.2-5.5); ALBUMIN/GLOBULIN RATIO 1.2 (1.0-2.2); BILIRUBIN,TOTAL 0.9 mg/dL (0.2-1.0); CALCIUM 8.9 mg/dL (8.5-10.3); CREATININE 0.7 mg/dL (0.6-1.2); POTASSIUM 4.2 mmol/L (3.5-5.0)
[2023-01-01] MEDS ORDERED: ONDANSETRON 4 MG/2 ML VIAL IVP STA (18:18)
[2023-01-01] MEDS ORDERED: SODIUM CHLORIDE 0.9% 1,000 ML IV STA (18:18)
--- NOTE | 2023-01-01 19:04 | ED Physician Documentation ---
History of Present Illness - Stated complaint Stated Complaint: N/V - Chief complaint Chief Complaint: Abd Pain - History obtained from History obtained from: Patient - Additonal information Additional information: The patient comes to the emergency department With chief complaint of nausea, vomiting, abdominal cramping, and diarrhea that started around midnight last night. He believes that he got sick because he ate a can of chili and is worried that he has botulism. Patient denies any fevers or chills. No difficulty breathing. No muscle weakness. The patient states that nobody else ate the chili and no one else at home has been sick. He is otherwise healthy. His last bout of vomiting was several hours ago. PD PAST MEDICAL HISTORY - Past Medical History Past Medical History: Yes Cardiovascular: None Respiratory: None Neuro: None Endocrine/Autoimmune: None GI: None : None HEENT: None Psych: Depression, Bipolar disorder Musculoskeletal: None Derm: None - Past Surgical History Past Surgical History: No General: Appendectomy - Present Medications Home Medications: Ambulatory Orders Medication Instructions Recorded Confirmed Ondansetron Odt [Zofran] 4 mg TL Q6H PRN #10 tablet 01/01/23 - Allergies Allergies/Adverse Reactions: Allergies Allergy/AdvReac Type Severity Reaction Status Date / Time Sulfa (Sulfonamide Allergy Unknown Verified 01/01/23 15:48 Antibiotics) - Social History Does the pt smoke?: No Smoking Status: Never smoker Does the pt drink ETOH?: No Does the pt have substance abuse?: Yes - Immunizations Immunizations are current?: Yes - POLST Patient has POLST: No PD ED PE NORMAL - Vitals Vital signs reviewed: Yes - General General: Alert and oriented X 3, No acute distress, Well developed/nourished, Other (Morbidly obese) - HEENT HEENT: Atraumatic, PERRL, EOMI, Moist mucous membranes - Neck Neck: Supple, no meningeal sign - Cardiac Cardiac: RRR, No murmur, Strong equal pulses - Respiratory Respiratory: No respiratory distress, Clear bilaterally - Abdomen Abdomen: Soft, Non tender, Non distended - Derm Derm: Normal color, Warm and dry, No rash - Extremities Extremities: No deformity, No edema, No calf tenderness / cord - Neuro Neuro: Other (Grossly intact) - Psych Psych: Normal mood, Normal affect Results - Vitals Vitals: Vital Signs - 24 hr 01/01/23 15:44 Temperature 36.8 C Heart Rate 115 H Respiratory 18 Rate Blood Pressure 143/71 H O2 Saturation 97 Oxygen O2 Source Room air - Labs Labs: Laboratory Tests 01/01/23 01/01/23 01/01/23 15:55 16:02 16:02 WBC 14.1 H RBC 5.89 Hgb 15.6 Hct 46.6 MCV 79.1 L MCH 26.5 L MCHC 33.5 RDW 12.8 Plt Count 285 MPV 8.9 Neut # (Auto) 12.2 H Lymph # (Auto) 0.6 L [place] # (Auto) 1.0 Eos # (Auto) 0.1 Baso # (Auto) 0.1 Absolute Nucleated RBC 0.00 Nucleated RBC % 0.0 Sodium 137 Potassium 4.2 Chloride 102 Carbon Dioxide 23 Anion Gap 12.0 BUN 16 Creatinine 0.7 Estimated GFR (MDRD) 135 Glucose 107 H Calcium 8.9 Total Bilirubin 0.9 AST 35 ALT 60 Alkaline Phosphatase 68 Total Protein 8.0 Albumin 4.3 Globulin 3.7 Albumin/Globulin Ratio 1.2 Lipase 34 Urine Color YELLOW Urine Clarity CLEAR Urine pH 6.0 Ur Specific [place] >=1.030 H Urine Protein NEGATIVE Urine Glucose (UA) NEGATIVE Urine Ketones NEGATIVE Urine Occult Blood NEGATIVE Urine Nitrite NEGATIVE Urine Bilirubin NEGATIVE Urine Urobilinogen 0.2 (NORMAL) Ur Leukocyte Esterase NEGATIVE Ur Microscopic Review NOT INDICATED Urine Culture Comments NOT INDICATED PD Medical Decision Making - ED course Complexity details: considered differential, d/w patient ED course: The patient was given a liter of 0.9 normal saline and Zofran after which she was found to be feeling much better. CBC showed a moderately elevated white blood cell count of 14 in the ER abdominal panel was unremarkable by my interpretation. Urinalysis showed increased specific gravity but otherwise negative. I have reassured him that I do not think he has botulism, but we have discussed the symptoms which should be cause for concern and return to the emergency department. Departure - Departure Disposition: 01 Home, Self Care Clinical Impression: Gastroenteritis Condition: Stable Instructions: ED Gastroenteritis Viral Prescriptions: Ondansetron Odt [Zofran] 4 mg TL Q6H PRN #10 tablet PRN Reason: Nausea / Vomiting Comments: I do not believe that you have botulism. You do not have any of the concerning symptoms for this. It is possible that the chili caused you to have this nausea and vomiting and diarrhea, but it is also possible that you caught the viral illness that is going around heavily in her community and causing the same symptoms. Either way, your symptoms are Expected to be self-limited and your illness should resolve on its own in the next several days or so. Please take the nausea medication that has been prescribed for you. The prescription for this has been electronically transmitted to the [facility] pharmacy in [place], your pharmacy of choice on record. You may drink clear liquids once you have been without vomiting for 6 hours. Take only small amounts at a time and wait 20 minutes or more between sips before taking the next couple of sips. If you are able to tolerate this, then you may slowly increase the amount of fluid you are drinking. Once you have been able to tolerate fluids for 24 hours, you may try eating simple starches like saltine crackers, white rice, or Ramen noodles.
[2023-01-01] MEDS ORDERED: HYDROmorphone 1 MG/ML CARPUJECT IVP STA (19:28)
== END 2023-01-01 19:51 | disposition home or self-care (01) ==
LOC: ED 15:38
DX: K52.9 Noninfective gastroenteritis and colitis, unspecified (principal)
CPT/HCPCS: 36415; 80053; 81003; 83690; 85025; 96374; 96375; 99283; J1170; 81001; 87086